=== PATIENT | female | born 1995 | race Caucasian/White ===

== ENCOUNTER → 2016-10-04 | Outpatient (CLI) | payer BC ==
[2016-10-07 01:33] LABS: CHLAMYDIA TRACH RNA*** NOT DETECTED (NOT DETECTED); GC (NEIS GONORRHOEAE)RNA** NOT DETECTED (NOT DETECTED)
== END | disposition home or self-care (01) ==
LOC: C.LABSPEC 17:57
PROVIDERS: ATTEND Obstetrics & Gynecology
DX: Z01.419 Encounter for gynecological examination (general) (routine) without abnormal findings (principal)

== ENCOUNTER → 2016-10-04 | Outpatient (CLI) | payer BC | END | disposition home or self-care (01) | LOC: C.PAPS 10:03 | PROVIDERS: ATTEND Obstetrics & Gynecology | DX: Z01.419 Encounter for gynecological examination (general) (routine) without abnormal findings (principal) ==

== ENCOUNTER 2020-01-14 10:58 | Inpatient (IN) ==
[2020-01-14] MEDS ORDERED: BETAMETH SOD PHOS/ACETATE IA 6 MG/ML IM STA (11:27)
[2020-01-14] MEDS ORDERED: LACTATED RINGER'S 1,000 ML IV PRN (11:35)
[2020-01-14] MEDS ORDERED: PENICILLIN G POTASSIUM 6 MU in DEXTROSE 5% 250 ML IV STA (11:35)
[2020-01-14] MEDS ORDERED: OXYTOCIN 30 UNITS/500 ML BAG IV PRN (11:35)
[2020-01-14] MEDS: LACTATED RINGER'S 1,000 ML IV PRN ×3 (11:36→23:12)
[2020-01-14 11:45] LABS: Basophils # (auto) 0.02 K/uL (0-0.2); Basophils % (auto) 0.1 %; Eosinophils # (auto) 0.04 K/uL (0-0.5); Eosinophils % (auto) 0.3 %; Hematocrit (blood only) 38.2 % (37-47); Hemoglobin 13.5 g/dL (12.0-16.0); Immature Granulocytes # (auto) 0.04 K/uL (0.00-0.02); Immature Granulocytes % (auto) 0.3 %; Lymphocytes # (auto) 1.52 K/uL (1.2-3.4); Lymphocytes % (auto) 11.1 %; Mean Corpuscular Hemoglobin 31.7 pg (25-34); Mean Corpuscular Hgb Conc 35.3 g/dL (32-36); Mean Corpuscular Volume 89.7 fL (80-100); Mean Platelet Volume 12.2 fL (7.4-10.4); Monocytes # (auto) 0.57 K/uL (0.11-0.59); Monocytes % (auto) 4.2 %; Neutrophils # (auto) 11.49 K/uL (1.4-6.5); Platelet Count 170 K/uL (130-400); RDW Standard Deviation 42.4 fL (36.4-46.3); Red Blood Count 4.26 M/uL (4.2-5.4); White Blood Count 13.68 K/uL (4.8-10.8)
--- NOTE | 2020-01-14 11:45 | History & Physical Report ---
Date of Service January 14, 2020 Assessment & Plan (1) with 34 completed weeks gestation: (2) Premature labor: fetus category two with variables but overall reassuring variability. Given the situation of the fhr monitoring and that she is in alon, I discussed the situation with the patient. Options would include transferring to tertiary care center or proceeding with delivery here. Given the appearance of the monitor and that she had some bleeding after my check, I am concerned about putting this patient on a transport at this time with concern for decompensation of status, she may be trying to abrupt. Discussed this with the patient and Dr. Burkett the peds. If she stays here, there is a possibility of the baby needing transferred for NICU care. We discussed the +/- of the options. I do not feel it is really safe to transport the patient at this time. Would plan on admitting the patient and letting mother nature take it's course. As GBS unknown, will give pcn. Dr. Burkett is aware of the plan and in agreement. Patient and SO are also in agreement with staying and willing to risk transfer of fetus. Would allow vaginal delivery as long as FHT tolerate labor. IF nrfht, would proceed with c/s. Patient is aware. History of Present Illness Chief Complaint: contractions Primary Care Provider: NO PCP Patient is a 24yowf wtih iup at 34 5/7 weeks by a first trimester ultrasound. She presents to the office today for increasing contractions. She was seen over the weekend in labor and delivery for contractions, was cl/l and had ffn which was negative. She was d/c home. Patient notes that she continued to contract intermittently over the last several days and times quite stong and close. They got stronger this am. Patient notes she has been peeing alot but denies lof. no vaginal bleeding noted. +fm. labs--A+/ab-/ri/rprnr/hepb-/hiv-/gtt x 2 nl/ gc/ct-/ panorama low risk/ declined cf/sma/gbs unknown. Allergies Allergy/AdvReac Type Severity Reaction Status Date / Time No Known Drug Allergies Allergy Verified 01/09/20 13:55 Home Medications Home Medications Medication Instructions Recorded Confirmed Type breast pump #1 ea 10/30/19 01/09/20 Rx docusate sodium [Colace] 100 mg PO DAILY 01/12/20 01/12/20 History vit-iron fum-folic ac 1 tab PO DAILY 01/12/20 01/12/20 History [ Vitamin] Patient History Medical History No pertinent past medical history Surgical History History of tooth extraction S/P eye surgery Family History Uncle Diabetes paternal uncle Social History Preferred Language: Polish Beliefs That Will Affect Care: None marital status: marital status details: Schuyler (26) [phone] Current Living Situation: Spouse Current Living Situation Comment: lives with spouse and 1 dog current occupational status: employed 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 Psychiatric: A+Ox3, euthymic affect Genitourinary: cx--3-4/90/-2, difficult to feel any membranes after checking patient noted she felt leaking/gush, and a little gush of blood noted from the vagina efm--145 with mod variability, small accels , variables with some contractions bsus--cephalic, very little amniotic fluid noted toco--q2-4min contractions with lots of irritability. Results & Data Vital Signs (Past 12 Hours) Vital Signs Temp Resp 01/14/20 11:08 36.8 C 20 Code Status & VTE Plan VTE Prophylaxis Plan VTE Prophylaxis will be ordered: No Coding Level of Care Code None Diagnoses with 34 completed weeks gestation Z3A.34 Premature labor O60.00
--- NOTE | 2020-01-14 14:14 | Obstetrical Progress Note ---
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 Contractions have spaced with ivf. It does not now appear that she is going to rapidly labor or that she is abrupting. Long conversation with the patient and FOB. Called and discussed the case [place] [facility] [place]ained the situation to her and concerned that now may be our only opportunity to get her transferred. The fht more reassuring with spacing of contractions. Is not making active cervical change at this point. they are ok to accept her in transfer at this time. Main benefit of transfer would be NICU and keeping mothe r and baby together. Patient understands that delivering here may necessitate baby needing transfer, likely for respiratory issues. Discussed helicopter vs. ambulance, and they think she is not urgent enough to require air transfer. I feel much better about putting her on an ambulance at this point. Would certainly check her before transfer. Discussed the other option of keeping her here under observation and getting second dose of steroids on board and seeing what happened. Dr. Johns did not think that there was an indication at this point for just breaking her bag of water and augmenting labor, despite my informal impression of oligo, do not see a pocket of fluid to measure that does not have cord (and only see one possible option). No idea when she will further labor, rom or become infected. After long discussion of pros/cons and uncertainty, they accept transfer. (2) with 34 completed weeks gestation: Subjective Patient notes ctx have spaced but still feeling them. No further bleeding. Was up to bathroom and no bleeding noted. +fm Physical Exam Constitutional: WD/WN, vitals as above Gastrointestinal (Abdomen): soft, gravid, nt Psychiatric: A+Ox3, euthymic affect Genitourinary: cx--/-2, bag felt, old blood noted on glove, no fresh blood toco--contractions have spaced some with ivf. Continues to have lots of irritability. A true contractions bout every 5-8 min efm--145 with mod variabiity, since contractions have spaced, there are fewer variables and not with all contractions, now just occasional. accels to 170s Results & Data Vital Signs (Past 12 Hours) Vital Signs Temp Resp 01/14/20 11:08 36.8 C 20 PG Care Time/CCT Total # of Minutes Spent Total Time Spent with Patient: Total time spent is greater than 50% in coordination of care (as documented) at patient's floor/unit and/or counseling patient: Coding Level of Care Code None Diagnoses Premature labor O60.00 with 34 completed weeks gestation Z3A.34
--- NOTE | 2020-01-14 14:21 | Labor Progress Brief Note ---
Date of Service January 14, 2020 Subjective Patient notes she feels the contractions are more painful and noted a little trickle Assessment & Plan (1) Premature labor: no change, still feel if she is not changing her cervix, the best option is transfer at this time. fetus reassuring. Physical Exam Constitutional: WD/WN, vitals as above Gastrointestinal (Abdomen): soft, nt, gravid Psychiatric: A+Ox3, euthymic affect Genitourinary: slight trickle of dark blood cx--unchanged toco--irritability , with occasional contractions efm--category one at this point. Results & Data Vital Signs (Past 12 Hours) Vital Signs Temp Resp 01/14/20 11:08 36.8 C 20 Coding Level of Care Code None Diagnoses Premature labor O60.00
--- NOTE | 2020-01-14 15:04 | Labor Progress Brief Note ---
Date of Service January 14, 2020 Subjective Patient notes she continues to be more uncomfortable. Notes contractions more frequent Assessment & Plan (1) Premature labor: At this point, I do not feel comfortable transferring the patient at this point given contractions have picked up a bit and she is perceiving them as getting stronger. AT this point, I just want to sit on her and monitor and see what she ends up doing. If she labors , will deliver by safest possible route based on ob indications. If does not labor, will monitor, get second dose of steroids and reevaluate. I discussed this patient with DR. Jones that will be taking over tomorrow. Explained the change in situation to the patient and they are very agreeable to staying. They are well aware of possibility of transfer of the baby postdelivery Physical Exam Constitutional: WD/WN, vitals as above Psychiatric: A+Ox3, euthymic affect Genitourinary: toco--contractions have now picked up a bit, more irritability, q4-8 efm--150s with mod variability, accels present. variables have picked up a bit again. Results & Data Vital Signs (Past 12 Hours) Vital Signs Temp Resp 01/14/20 11:08 36.8 C 20 Coding Level of Care Code None Diagnoses Premature labor O60.00
--- NOTE | 2020-01-14 16:06 | Ultrasound Report ---
US OB limited HISTORY: 24 years-old Female EMERSON evaluation of a third trimester . COMPARISON: Pelvic ultrasound 10/02/2019 TECHNIQUE: Multiple real-time sonographic images of the deep pelvic structures were obtained assessin g grayscale appearance and M-mode analysis transabdominal. FINDINGS: Limited study was obtained for evaluation of EMERSON. Femur length is 6.27 cm which correlates with estim ated gestational age of 32 weeks and 3 days. Estimated date of delivery calculated at 03/07/2020. Sing le living intrauterine gestation with heart rate of 148 bpm. Fetus is in cephalic positioning. Nonspecific heterogeneous appearance of the anterior placenta with probable placental calcifications. EMERSON measures 7.43 cm. IMPRESSION: 1. Single living intrauterine gestation. 2. EMERSON measures within the lower limits of normal at 7.4 cm. 3. Heterogeneous appearance of the placenta with suggestion of placental calcifications. ACT 112: Negative or not required by law. The above report was generated using voice recognition software. It may contain grammatical, syntax o r spelling errors. Electronically signed by: Bryan Gill M.D. 01/14/2020 4:05 PM
[2020-01-14] MEDS: PENICILLIN G POTASSIUM 3 MU in DEXTROSE 5% 100 ML IV PRN ×2 (16:12→20:10)
--- NOTE | 2020-01-14 16:43 | Labor Progress Brief Note ---
Date of Service January 14, 2020 Subjective Continues to be uncomfortable and noting back pain Assessment & Plan (1) Premature labor: Has not made any further significant change, but still having some dark bleeding. Plan expectant management at this point. Continue pcn for gbs unknown. fetus overall reassuring. Physical Exam Constitutional: WD/WN, vitals as above Psychiatric: A+Ox3, euthymic affect Genitourinary: cx--4/100/-2 toco--q4-8min, irritability efm--150s with mod variability, small accels, occasional variable formal ultrasound. EMERSON 7.43, calcified placenta Results & Data Vital Signs (Past 12 Hours) Vital Signs Temp Pulse Resp BP 01/14/20 15:55 37.2 C 85 20 119/70 01/14/20 11:08 36.8 C 20 Coding Level of Care Code None Diagnoses Premature labor O60.00
[2020-01-14] MEDS ORDERED: ePHEDrine sulfate 50 MG/ML AMP ONE (19:14)
--- NOTE | 2020-01-14 19:14 | Labor Progress Brief Note ---
Date of Service January 14, 2020 Subjective Patient feeling much more uncomfortable. Requesting epidural. She notes pressure much lower. Assessment & Plan (1) Premature labor: showing progression in labor now. Fetus overall reassuring category two. Will allow epidural at this point since she is demonstrating progression in labor. anticipate . Physical Exam Constitutional: WD/WN, vitals as above Psychiatric: A+Ox3, euthymic affect Genitourinary: cx--5+/100/-2, bulging bag toco--q2-5min efm--150s with mod variability, small variables, occasional Results & Data Vital Signs (Past 12 Hours) Vital Signs Temp Pulse Resp BP 01/14/20 19:07 90 105/58 L 01/14/20 15:55 37.2 C 85 20 119/70 01/14/20 11:08 36.8 C 20 Coding Level of Care Code None Diagnoses Premature labor O60.00
[2020-01-14] MEDS ORDERED: BUPIVACAINE 0.25% 30 ML VIAL ONE (19:15)
[2020-01-14] MEDS ORDERED: fentaNYL citrate 100 MCG/2 ML VIAL ONE (19:15)
[2020-01-14] MEDS ORDERED: fentaNYL 2MCG/ML ROPIV 1.25MG/ML 100 ML BAG EPI ONE (19:15)
[2020-01-14] MEDS ORDERED: fentaNYL 2MCG/ML ROPIV 1.25MG/ML 100 ML BAG EPI PRN (20:18)
[2020-01-14] MEDS ORDERED: NALOXONE HCL 0.4 MG/1 ML VIAL/CARP IV PRN (20:18)
[2020-01-14] MEDS ORDERED: NALOXONE HCL 1 MG in SODIUM CHLORIDE 0.9% 1000ML 1,000 ML IV PRN (20:18)
[2020-01-14] MEDS ORDERED: NALBUPHINE HCL INJ 10 MG/ML AMP IV PRN (20:18)
[2020-01-14] MEDS ORDERED: DiphenhydrAMINE HCL 50 MG/ML VIAL IV PRN (20:18)
[2020-01-14] MEDS ORDERED: ONDANSETRON INJ 2 MG/ML 2 ML VIAL IV PRN (20:18)
[2020-01-14] MEDS ORDERED: ePHEDrine sulfate 50 MG/ML AMP IV PRN (20:18)
--- NOTE | 2020-01-14 20:18 | Anesthesiology Consultation ---
Date of Service January 14, 2020 Assessment & Plan (1) Encounter for pre-operative examination: Chart Review Chart Review: Acceptable Risk for Surgery and Patient NOT seen in Pre Admission Testing Consults Requested none ASA ASA2 Proposed Anesthesia Anesthesia Type: Labor Epidural Risk / Benefits Reviewed With: PT / POA / Parent / Guardian, Accepts Plan and Informed Consent Obtained History Height/Weight Height: 5 ft 3 in Weight: 70.76 kg Allergies Allergy/AdvReac Type Severity Reaction Status Date / Time No Known Drug Allergies Allergy Verified 01/09/20 13:55 Medications Home Medications Medication Instructions Recorded Confirmed Last Taken breast pump #1 ea 10/30/19 01/09/20 Unknown docusate sodium [Colace] 100 mg PO DAILY 01/14/20 01/14/20 01/13/20 08:00 vit-iron fum-folic ac 1 tab PO DAILY 01/14/20 01/14/20 01/13/20 08:00 [ Vitamin] Active Medications Generic Name Dose Route Start Last Admin Trade Name Freq PRN Reason Stop Dose Admin Lactated Ringer's 1,000 mls @ 125 mls/hr 01/14/20 11:27 01/14/20 20:10 Lr IV 02/13/20 11:26 0 mls/hr .Q8H PRN Infusion L&D Protocol Protocol Penicillin G Potassium 3 mu/ 106 mls @ 100 mls/hr 01/14/20 11:35 01/14/20 20:10 Dextrose IV 01/24/20 11:34 100 mls/hr Q4H PRN Administration Give until delivery NPO Date Last Intake of Fluids: 01/14/20 Time Last Intake of Fluids: 18:00 Date Last Intake of Solids: 01/14/20 Time Last Intake of Solids: 09:00 Past Medical History Medical History No pertinent past medical history Exercise / Class Metabolic Activity II 4-5 Yardwork/Stairs/Walk up hill Past Family History Family History Uncle Diabetes paternal uncle Past Surgical History Surgical History History of tooth extraction S/P eye surgery Past Anesthesia History No Hx of Anesthesia Complications and No Family Hx of Anesthesia Complications History of PONV No Hx of PONV and No Hx of Motion Sickness Social History Smoking Status: Never smoker Hx Alcohol Use: No (social) Hx Substance Use: No substance use type: does not use Physical Exam Vital Signs Last Vital Signs Temp 36.9 C 01/14/20 19:07 Pulse 113 H 01/14/20 20:15 Resp 18 01/14/20 19:07 BP 97/55 L 01/14/20 20:15 Pulse Ox 97 01/14/20 20:11 ENMT Mouth: no dentition abnormality Thyromental Distance: > or= 3.5 Finger Breadths Mallampati Class: II Neck normal visual inspection Respiratory normal respiratory effort Auscultation: lungs clear to auscultation bilaterally Cardiovascular Rate/Rhythm: regular rate and regular rhythm Psychiatric Orientation: alert Testing Laboratory Results 01/14/20 11:34
--- NOTE | 2020-01-14 22:19 | Labor Progress Brief Note ---
Date of Service January 14, 2020 Subjective comfortable after epidural Assessment & Plan (1) Premature labor: continue current management. fetus overall category one , rarer variables now, but now with arom, will need to monitor closely. anticipate . Physical Exam Constitutional: WD/WN, vitals as above Psychiatric: A+Ox3, euthymic affect Genitourinary: 100/-2 arom--clear toco--q2-4min efm--150s with mod variability, small accels, occasional rare variable at this point Results & Data Vital Signs (Past 12 Hours) Vital Signs Temp Pulse Resp BP Pulse Ox 01/14/20 22:11 94 H 98 01/14/20 22:06 120 H 97 01/14/20 22:05 86 98/50 L 01/14/20 22:01 89 96 01/14/20 21:56 77 96 01/14/20 21:51 77 97 01/14/20 21:49 80 92/54 L 01/14/20 21:46 82 97 01/14/20 21:41 84 96 01/14/20 21:36 77 96 01/14/20 21:34 76 94/54 L 01/14/20 21:31 77 96 01/14/20 21:30 18 01/14/20 21:26 79 97 01/14/20 21:21 77 96 01/14/20 21:20 88 104/55 L 01/14/20 21:16 81 97 01/14/20 21:11 79 97 01/14/20 21:06 81 96 01/14/20 21:05 91 H 103/56 L 01/14/20 21:01 96 H 97 01/14/20 21:00 18 01/14/20 20:56 93 H 97 01/14/20 20:51 82 97 01/14/20 20:46 92 H 98 01/14/20 20:42 74 102/56 L 01/14/20 20:41 76 97 01/14/20 20:36 79 98 01/14/20 20:33 80 102/55 L 01/14/20 20:31 76 98 01/14/20 20:30 37.7 C H 18 01/14/20 20:26 109 H 98 01/14/20 20:21 81 101/55 L 97 01/14/20 20:19 86 101/55 L 01/14/20 20:17 85 103/52 L 01/14/20 20:16 91 H 97 01/14/20 20:15 113 H 97/55 L 01/14/20 20:13 86 96/53 L 01/14/20 20:11 88 101/51 L 97 01/14/20 20:07 76 107/55 L 01/14/20 20:06 79 97 01/14/20 20:05 89 112/55 L 01/14/20 20:01 81 98 01/14/20 19:56 94 H 98 01/14/20 19:54 86 115/55 L 01/14/20 19:51 89 98 01/14/20 19:46 101 H 98 01/14/20 19:41 95 H 99 01/14/20 19:36 81 100 01/14/20 19:31 85 99 01/14/20 19:26 84 99 01/14/20 19:07 36.9 C 90 18 105/58 L 01/14/20 15:55 37.2 C 85 20 119/70 01/14/20 11:08 36.8 C 20 Coding Level of Care Code None Diagnoses Premature labor O60.00
[2020-01-15] MEDS: PENICILLIN G POTASSIUM 3 MU in DEXTROSE 5% 100 ML IV PRN ×2 (00:12→04:04)
--- NOTE | 2020-01-15 00:23 | Labor Progress Brief Note ---
Date of Service January 15, 2020 Subjective comfortable Assessment & Plan (1) Premature labor: Continue current expectant management. Fetus category two but overall reassuring. Anticipate . Physical Exam Constitutional: WD/WN, vitals as above Psychiatric: A+Ox3, euthymic affect Genitourinary: cx--7-8/100/-1-0 toco--q2-3min efm--150s with mod variability, small accels, rare variable Results & Data Vital Signs (Past 12 Hours) Vital Signs Temp Pulse Resp BP Pulse Ox 01/15/20 00:16 93 H 97 01/15/20 00:12 37.0 C 16 01/15/20 00:11 84 97 01/15/20 00:06 87 96 01/15/20 00:04 100 H 107/57 L 01/15/20 00:01 88 96 01/14/20 23:56 85 96 01/14/20 23:51 86 96 01/14/20 23:49 88 106/58 L 01/14/20 23:46 116 H 97 01/14/20 23:41 92 H 96 01/14/20 23:36 83 96 01/14/20 23:35 115 H 103/56 L 01/14/20 23:31 100 H 97 01/14/20 23:30 18 01/14/20 23:26 107 H 97 01/14/20 23:21 80 96 01/14/20 23:20 88 115/56 L 01/14/20 23:16 88 96 01/14/20 23:11 99 H 97 01/14/20 23:06 110 H 97 01/14/20 23:05 100 H 112/59 L 01/14/20 23:01 88 97 01/14/20 23:00 18 01/14/20 22:56 105 H 96 01/14/20 22:51 91 H 97 01/14/20 22:50 126 H 118/57 L 01/14/20 22:46 81 96 01/14/20 22:41 89 96 01/14/20 22:36 75 96 01/14/20 22:34 91 H 103/57 L 01/14/20 22:31 73 96 01/14/20 22:30 18 01/14/20 22:26 72 96 01/14/20 22:21 83 96 01/14/20 22:19 97 H 95/56 L 01/14/20 22:16 77 97 01/14/20 22:15 37.1 C 01/14/20 22:11 94 H 98 01/14/20 22:06 120 H 97 01/14/20 22:05 86 98/50 L 01/14/20 22:01 89 96 01/14/20 22:00 18 01/14/20 21:56 77 96 01/14/20 21:51 77 97 01/14/20 21:49 80 92/54 L 01/14/20 21:46 82 97 01/14/20 21:41 84 96 01/14/20 21:36 77 96 01/14/20 21:34 76 94/54 L 01/14/20 21:31 77 96 01/14/20 21:30 18 01/14/20 21:26 79 97 01/14/20 21:21 77 96 01/14/20 21:20 88 104/55 L 01/14/20 21:16 81 97 01/14/20 21:11 79 97 01/14/20 21:06 81 96 01/14/20 21:05 91 H 103/56 L 01/14/20 21:01 96 H 97 01/14/20 21:00 18 01/14/20 20:56 93 H 97 01/14/20 20:51 82 97 01/14/20 20:46 92 H 98 01/14/20 20:42 74 102/56 L 01/14/20 20:41 76 97 01/14/20 20:36 79 98 01/14/20 20:33 80 102/55 L 01/14/20 20:31 76 98 01/14/20 20:30 37.7 C H 18 01/14/20 20:26 109 H 98 01/14/20 20:21 81 101/55 L 97 01/14/20 20:19 86 101/55 L 01/14/20 20:17 85 103/52 L 01/14/20 20:16 91 H 97 01/14/20 20:15 113 H 97/55 L 01/14/20 20:13 86 96/53 L 01/14/20 20:11 88 101/51 L 97 01/14/20 20:07 76 107/55 L 01/14/20 20:06 79 97 01/14/20 20:05 89 112/55 L 01/14/20 20:01 81 98 01/14/20 19:56 94 H 98 01/14/20 19:54 86 115/55 L 01/14/20 19:51 89 98 01/14/20 19:46 101 H 98 01/14/20 19:41 95 H 99 01/14/20 19:36 81 100 01/14/20 19:31 85 99 01/14/20 19:26 84 99 01/14/20 19:07 36.9 C 90 18 105/58 L 01/14/20 15:55 37.2 C 85 20 119/70 Coding Level of Care Code None Diagnoses Premature labor O60.00
--- NOTE | 2020-01-15 03:19 | Labor Progress Brief Note ---
Date of Service January 15, 2020 Subjective comfortable Assessment & Plan (1) Premature labor: Begin second stage. Peds here. anticipate . Physical Exam Constitutional: WD/WN, vitals as above Psychiatric: A+Ox3, euthymic affect Genitourinary: c/c/+2 toco--q2-4min efm--140s wtih mod variability, accels to 160s, occasional variable Results & Data Vital Signs (Past 12 Hours) Vital Signs Temp Pulse Resp BP Pulse Ox 01/15/20 03:16 99 H 96 01/15/20 03:11 93 H 97 01/15/20 03:06 90 96 01/15/20 03:05 87 104/55 L 01/15/20 03:01 96 H 96 01/15/20 03:00 18 01/15/20 02:56 88 96 01/15/20 02:51 90 97 01/15/20 02:49 83 104/50 L 01/15/20 02:46 85 97 01/15/20 02:41 83 97 01/15/20 02:36 102 H 98 01/15/20 02:35 93 H 129/63 01/15/20 02:31 87 97 01/15/20 02:30 18 01/15/20 02:26 91 H 97 01/15/20 02:21 94 H 97 01/15/20 02:20 96 H 122/59 L 01/15/20 02:16 88 96 01/15/20 02:11 85 97 01/15/20 02:06 103 H 98 01/15/20 02:04 96 H 115/58 L 01/15/20 02:01 91 H 97 01/15/20 02:00 16 01/15/20 01:56 86 97 01/15/20 01:51 106 H 98 01/15/20 01:49 100 H 116/63 01/15/20 01:46 86 97 01/15/20 01:41 85 97 01/15/20 01:36 84 97 01/15/20 01:34 113 H 106/60 01/15/20 01:31 97 H 98 01/15/20 01:30 18 01/15/20 01:26 98 H 97 01/15/20 01:21 117 H 97 01/15/20 01:20 115 H 117/59 L 01/15/20 01:16 83 97 01/15/20 01:11 104 H 96 01/15/20 01:06 99 H 97 01/15/20 01:05 96 H 110/59 L 01/15/20 01:01 109 H 97 01/15/20 01:00 16 01/15/20 00:56 90 97 01/15/20 00:51 111 H 97 01/15/20 00:49 89 110/60 01/15/20 00:46 88 97 01/15/20 00:41 108 H 97 01/15/20 00:36 105 H 97 01/15/20 00:34 100 H 112/63 01/15/20 00:31 91 H 97 01/15/20 00:30 18 01/15/20 00:26 124 H 97 01/15/20 00:21 89 109/62 98 01/15/20 00:16 93 H 97 01/15/20 00:12 37.0 C 16 01/15/20 00:11 84 97 01/15/20 00:06 87 96 01/15/20 00:04 100 H 107/57 L 01/15/20 00:01 88 96 01/14/20 23:56 85 96 01/14/20 23:51 86 96 01/14/20 23:49 88 106/58 L 01/14/20 23:46 116 H 97 01/14/20 23:41 92 H 96 01/14/20 23:36 83 96 01/14/20 23:35 115 H 103/56 L 01/14/20 23:31 100 H 97 01/14/20 23:30 18 01/14/20 23:26 107 H 97 01/14/20 23:21 80 96 01/14/20 23:20 88 115/56 L 01/14/20 23:16 88 96 01/14/20 23:11 99 H 97 01/14/20 23:06 110 H 97 01/14/20 23:05 100 H 112/59 L 01/14/20 23:01 88 97 01/14/20 23:00 18 01/14/20 22:56 105 H 96 01/14/20 22:51 91 H 97 01/14/20 22:50 126 H 118/57 L 01/14/20 22:46 81 96 01/14/20 22:41 89 96 01/14/20 22:36 75 96 01/14/20 22:34 91 H 103/57 L 01/14/20 22:31 73 96 01/14/20 22:30 18 01/14/20 22:26 72 96 01/14/20 22:21 83 96 01/14/20 22:19 97 H 95/56 L 01/14/20 22:16 77 97 01/14/20 22:15 37.1 C 01/14/20 22:11 94 H 98 01/14/20 22:06 120 H 97 01/14/20 22:05 86 98/50 L 01/14/20 22:01 89 96 01/14/20 22:00 18 01/14/20 21:56 77 96 01/14/20 21:51 77 97 01/14/20 21:49 80 92/54 L 01/14/20 21:46 82 97 01/14/20 21:41 84 96 01/14/20 21:36 77 96 01/14/20 21:34 76 94/54 L 01/14/20 21:31 77 96 01/14/20 21:30 18 01/14/20 21:26 79 97 01/14/20 21:21 77 96 01/14/20 21:20 88 104/55 L 01/14/20 21:16 81 97 01/14/20 21:11 79 97 01/14/20 21:06 81 96 01/14/20 21:05 91 H 103/56 L 01/14/20 21:01 96 H 97 01/14/20 21:00 18 01/14/20 20:56 93 H 97 01/14/20 20:51 82 97 01/14/20 20:46 92 H 98 01/14/20 20:42 74 102/56 L 01/14/20 20:41 76 97 01/14/20 20:36 79 98 01/14/20 20:33 80 102/55 L 01/14/20 20:31 76 98 01/14/20 20:30 37.7 C H 18 01/14/20 20:26 109 H 98 01/14/20 20:21 81 101/55 L 97 01/14/20 20:19 86 101/55 L 01/14/20 20:17 85 103/52 L 01/14/20 20:16 91 H 97 01/14/20 20:15 113 H 97/55 L 01/14/20 20:13 86 96/53 L 01/14/20 20:11 88 101/51 L 97 01/14/20 20:07 76 107/55 L 01/14/20 20:06 79 97 01/14/20 20:05 89 112/55 L 01/14/20 20:01 81 98 01/14/20 19:56 94 H 98 01/14/20 19:54 86 115/55 L 01/14/20 19:51 89 98 01/14/20 19:46 101 H 98 01/14/20 19:41 95 H 99 01/14/20 19:36 81 100 01/14/20 19:31 85 99 01/14/20 19:26 84 99 01/14/20 19:07 36.9 C 90 18 105/58 L 01/14/20 15:55 37.2 C 85 20 119/70 Coding Level of Care Code None Diagnoses Premature labor O60.00
[2020-01-15] MEDS: LACTATED RINGER'S 1,000 ML IV PRN (03:46)
[2020-01-15] MEDS ORDERED: METHYLERGONOVINE MALEATE 0.2 MG/ML AMP ONE (04:35)
[2020-01-15] MEDS ORDERED: ACETAMINOPHEN 325 MG TAB PO PRN (04:43)
[2020-01-15] MEDS ORDERED: OXYCODONE/ACETAMINOPHEN 5mg/325mg TAB PO PRN (04:43)
--- NOTE | 2020-01-15 04:48 | Delivery Summary ---
Vaginal Delivery Summary Date of Service January 15, 2020 Pre-operative Diagnosis: at 34 6/7 weeks alon Post-operative Diagnosis: same Procedure: epidural arom second degree laceration with repair EBL: 400cc Anesthesia: epidural Procedure: The patient pushed for an hour to deliver a viable male in DOP position. The rest of the infant was then delivered without difficulty through a body cord. The baby was vigorous. The nose and mouth were bulb suctioned and the infant was placed in the maternal abdomen for drying and attention. Cord was clamped and cut at one minute of life. Cord blood and gases obtained. Placenta was manually extracted, ratty in appearance with a three vessel cord. Uterus explored after delivery of placenta and no retained products noted. Cervix/sulci/rectum were intact. A second degree perineal laceration was repaired in the normal standard fashion. Hemostasis obtained with dilute pitocin and fundal massage and IM methergine. Apgars were 7/9. Mother and baby doing well at the end of the delivery.
[2020-01-15 04:57] LABS: Base Excess Cord Arterial Bld -7.7 mEq/L (-9-1.8); CO2 Cord Arterial Blood 63 mmHg (39.1-73.5); HCO3 Cord Arterial Blood 22 mmol/L (19.7-28.5); PO2 Cord Arterial Blood 21 mmHg (4.1-31.7); pH Cord Arterial Blood 7.17 (7.1-7.38)
[2020-01-15 05:02] LABS: Base Excess Cord Venous Blood -6.7 mEq/L (-7.7-1.9); Cord Venous Blood HCO3 21 mmol/L (18.4-26.8); Cord Venous Blood PCO2 47 mmHg (30.4-57.2); Cord Venous Blood PO2 22 mmHg (14.1-43.3); Cord Venous Blood pH 7.26 (7.20-7.44)
[2020-01-15 05:05] LABS: O2 Saturation Cord Venous Bld < 68.0 % (<68); Oxygen Sat Cord Arterial Blood < 60.0 % (<60)
[2020-01-15] MEDS ORDERED: METHYLERGONOVINE MALEATE 0.2 MG/ML AMP IM ONE (05:09)
[2020-01-15] MEDS ORDERED: HYDROCORTISONE ACETATE 25 MG SUPP PR PRN (05:09)
[2020-01-15] MEDS ORDERED: SUPERCREAM 0.870% 15 GM JAR EXT PRN (05:09)
[2020-01-15] MEDS ORDERED: DIPHTHERIA/TETANUS/PERTUSSIS 0.5 ML SYR/VIAL IM ONE (05:09)
[2020-01-15] MEDS ORDERED: bisacodyL 10 MG SUPP PR PRN (05:09)
[2020-01-15] MEDS ORDERED: OXYTOCIN 30 UNITS/500 ML BAG IV PRN (05:09)
[2020-01-15] MEDS ORDERED: BENZOCAINE 20% AER SPR 82.5 GM CAN EXT PRN (05:09)
[2020-01-15] MEDS ORDERED: IBUPROFEN 600 MG TAB PO ONE (05:13)
[2020-01-15] MEDS ORDERED: CEFAZOLIN 3000MG/72.5 ML BAG IV SCH (05:15)
[2020-01-15] MEDS ORDERED: CEFAZOLIN 2000MG 2,000 MG/15 ML SYR IV ONE (05:30)
[2020-01-15] MEDS: PRENATAL VITAMIN 1 TAB PO SCH (08:53)
[2020-01-15] MEDS: DOCUSATE SODIUM 100 MG CAP PO SCH ×2 (08:53→20:55)
[2020-01-15] MEDS: IBUPROFEN 600 MG TAB PO PRN ×2 (09:58→15:43)
--- NOTE | 2020-01-15 10:02 | Anesthesia Procedure Note ---
Date of Service January 15, 2020 Anesthesia Post Epidural Note Vital Signs Vital Signs: Temp Pulse Resp BP Pulse Ox 36.8 C 105 H 16 114/72 98 01/15/20 07:30 01/15/20 07:30 01/15/20 07:30 01/15/20 07:30 01/15/20 07:30 Pain Intensity Abdomen: Pain Intensity: 2 Perineal: Pain Intensity: 1 Notes Mental Status: alert / awake / arousable and participated in evaluation Nausea / Vomiting: adequately controlled Pain: adequately controlled Airway Patency, RR, SpO2: stable & adequate BP & HR: stable & adequate Hydration State: stable & adequate Neuraxial Anesthesia: was administered and sensory block resolved Anesthetic Complications: no major complications apparent and Pt Satisfied with anesthetic care Epidural: Removed without complications and With tip intact
[2020-01-16] MEDS: IBUPROFEN 600 MG TAB PO PRN ×3 (06:16→17:09)
[2020-01-16 06:54] LABS: Hematocrit (blood only) 32.2 % (37-47); Hemoglobin 10.8 g/dL (12.0-16.0)
--- NOTE | 2020-01-16 07:55 | Obstetrical Progress Note ---
Date of Service January 16, 2020 Assessment & Plan (1) delivery: doing well . stable. routine care. rhpos, rubella immune. Day #:: 1 Subjective Ambulation: ambulating normally Voiding: no voiding problems Diet Tolerance:: regular diet Lochia:: Small Feeding Type:: breast feeding doing well. denies complaints. bottom a little sore. baby Physical Exam Constitutional WD/WN, vitals as above Respiratory normal respiratory effort, lungs clear to auscultation Cardiovascular Rate/Rhythm: regular rate and regular rhythm Gastrointestinal (Abdomen) Inspection/Auscultation: abdomen normal to inspection Percussion/Palpation: abdomen soft Fundus firm 2cm down Musculoskeletal nt calves no edema Neurologic grossly normal Psychiatric A+Ox3, euthymic affect Results & Data Vital Signs (Past 12 Hours) Vital Signs Temp Pulse Resp BP Pulse Ox 01/15/20 23:30 97.9 F 72 16 102/61 96
[2020-01-16] MEDS: DOCUSATE SODIUM 100 MG CAP PO SCH ×2 (08:58→20:28)
[2020-01-16] MEDS: PRENATAL VITAMIN 1 TAB PO SCH (08:58)
[2020-01-16] MEDS ORDERED: bisacodyL 5 MG TABEC PO SCH (20:00)
[2020-01-17] MEDS: IBUPROFEN 600 MG TAB PO PRN ×3 (05:35→20:32)
--- NOTE | 2020-01-17 06:55 | Obstetrical Progress Note ---
Date of Service January 17, 2020 Assessment & Plan (1) delivery: PPD#2 vaginal delivery, recovering well, D/C instructions reviewed today. Subjective Ambulation: ambulating normally Voiding: no voiding problems Passing Gas:: Yes Diet Tolerance:: regular diet Lochia:: Small Feeding Type:: breast feeding Physical Exam Constitutional WD/WN, vitals as above Eyes PERRL, conjunctivae normal, anicteric sclerae Neck normal visual inspection Respiratory normal respiratory effort and able to speak in complete sentences; no respiratory distress and no labored breathing Cardiovascular Rate/Rhythm: regular rate and regular rhythm Extremities: no edema Chest (Breasts) Chest: normal inspection of chest Gastrointestinal (Abdomen) Inspection/Auscultation: abdomen normal to inspection Soft, postgravid Psychiatric A+Ox3, euthymic affect Genitourinary OB Exam Abdomen: + fundal height Fundus: + firm and + relation to umbilicus (fundus just below umbilicus); not tender Results & Data Vital Signs (Past 12 Hours) Vital Signs Temp Pulse Resp BP 01/16/20 23:20 97.9 F 79 18 104/68 01/16/20 19:41 98.2 F 89 18 110/68
[2020-01-17] MEDS: DOCUSATE SODIUM 100 MG CAP PO SCH ×2 (08:10→20:32)
[2020-01-17] MEDS: PRENATAL VITAMIN 1 TAB PO SCH (08:10)
[2020-01-17 08:12] VITALS: TEMP 98.1; O2SAT 98
[2020-01-17 17:20] VITALS: BP 108/70; PULSE 80
== END 2020-01-17 20:35 | disposition home or self-care (01) | DRG 807 ==
LOC: 4S1 10:58 → OPB 10:58 → 4S1 11:35 → 4S2 01-15 06:50

== ENCOUNTER 2021-12-07 14:01 | Inpatient (IN) ==
--- NOTE | 2021-12-07 14:26 | Emergency Department Note ---
Impression & Plan Depression with suicidal ideation, Tobacco use ED Provider Note NAME: RUFINO PAN AGE: 26 SEX: F : 1995 ARRIVES VIA: Walk-In INFORMANT: Patient, ED PROVIDER(S): Jose Mays MD Chief Complaint: Suicidal thoughts HPI: Patient presents due to concern for suicidal thoughts that have been ongoing for the last 7 to 10 days. Patient states that she ran out of her medication approximately month ago but did not refill her medications. The patient is on 10 mcg of Celexa daily. Patient is working and states that her job is fine. Patient states that her home life is okay and that she feels safe at home. The patient has had SI with thoughts of using a gun and had thought of shooting herself in the past. The patient does have access to guns which are her 's. Patient denies any HI or AVH. Patient states her sleep and appetite been poor and that she is not eating or sleeping very well. Patient does admit to drinking alcohol and smokes cigarettes but denies any drug use. ROS: See HPI for pertinent positives and negatives. A total of 10 systems were reviewed and otherwise negative. Past medical history: See below Surgical history: See below Social history: See below Physical Exam: GENERAL: NAD, non-toxic. EYE EXAM: Normal conjunctiva. PERRL, no anisocoria and EOM's grossly intact w/o pain. OROPHARYNX: Moist mucus membranes. Grossly normal dentition. NECK: Supple, no nuchal rigidity, no adenopathy, non-tender. No signs of meningismus. LUNGS: Clear to auscultation. Normal chest wall mechanics. HEART: NSR, no MRG. ABDOMEN: Abdomen soft, non-tender, normo-active bowel sounds, no masses, no rebound or guarding. BACK: No CVA TTP. SKIN: No rashes and no bruising. UPPER EXTREMITIES: Upper extremities are grossly normal. LOWER EXTREMITIES: Grossly normal, no edema. NEURO EXAM: A&O x3, cranial nerves II-XII grossly intact, normal speech, moves all 4 extremities on command w/o issue. Psych: Positive SI, flat affect, negative HI or AVH. Differential diagnoses: Mood disorder, infection, hypoglycemia, electrolyte abnormalities, cardiac sources, intracerebral event, toxicologic, trauma, neurologic, as well as other pathologies. Course: Patient was seen and evaluated the bedside. Full history physical exam was performed. MDM: Patient was seen due to concern for SI with plan to shoot herself. The patient does have access to guns. Given this concern I did recommend inpatient management and the psych manager of case management saw evaluated the patient and agreed. The liason saw the patient and the patient was admitted to 3 S. Past Med/Surg History Medical History TORIN (generalized anxiety disorder) MDD (major depressive disorder) Surgical History History of tooth extraction S/P eye surgery Family History Uncle Diabetes paternal uncle Grandfather (Paternal) Prostate cancer Denies family history of Ovarian cancer Myocardial infarction Breast cancer Colorectal cancer Social History Smoking Status: Unknown if ever smoked Second Hand Exposure: No; Hx Alcohol Use: No (social) Hx Substance Use: No Preferred Language: Sinhala Communication Ability: Effective Chief Clinical Dietitian Required: No Beliefs That Will Affect Care: None marital status: marital status details: Schuyler (26) [phone] Current Living Situation: Spouse Current Living Situation Comment: lives with spouse and 1 dog current occupational status: employed 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 @ [employer] Feels Safe at Home: Yes Assistive Devices: None Allergies Allergies Allergy/AdvReac Type Severity Reaction Status Date / Time No Known Drug Allergies Allergy NKDA Verified 12/07/21 16:25 Home Meds Home Medications Medication Instructions Recorded Confirmed multivitamin 1 tab PO DAILY 12/07/21 12/07/21 Previous Rx's Medication Instructions Recorded escitalopram oxalate 10 mg tablet 10 mg PO DAILY #90 tab 12/06/21 (Lexapro) Results & Data (ED) Vital Signs Vital Signs - 24 hr 12/07/21 14:06 12/07/21 14:13 Temperature 36.9 C Temperature Source Temporal Artery Scan Pulse Rate 101 H Pulse Rate [Right Finger] 91 H Pulse Rhythm Regular Respiratory Rate 16 18 Respiratory Effort / Characteristics Non-Labored Spontaneous Respiratory Depth Normal Respiratory Pattern Regular Blood Pressure 120/72 Blood Pressure [Left Arm] 121/67 Blood Pressure Mean 88 Blood Pressure Mean [Left Arm] 85 Pulse Oximetry 100 99 Oxygen Delivery Method Room Air Room Air Sepsis Recent Fever Within 48 Hours No Sepsis New/Unexplained Change in Mental Status No Sepsis Action Taken by Nursing No Action Required Home Medications Current Medication List: was personally reviewed by me Laboratory Data Attestation: I reviewed the patient's lab results. Result diagrams: 12/07/21 15:02 12/07/21 15:02 Lab Results 12/07/21 12/07/21 12/07/21 Range/Units 14:41 14:41 14:41 WBC (4.8-10.8) K/uL RBC (4.2-5.4) M/uL Hgb (12.0-16.0) g/dL Hct (37-47) % MCV (80-100) fL MCH (25-34) pg MCHC (32-36) g/dL RDW Std Deviation (36.4-46.3) fL RDW Coeff of [place] (11.5-14.5) % Plt Count (130-400) K/uL MPV (7.4-10.4) fL Immature Gran % (Auto) % Neut % (Auto) % Lymph % (Auto) % [place] % (Auto) % Eos % (Auto) % Baso % (Auto) % Neut # (Auto) (1.4-6.5) K/uL Lymph # (Auto) (1.2-3.4) K/uL [place] # (Auto) (0.11-0.59) K/uL Eos # (Auto) (0-0.5) K/uL Baso # (Auto) (0-0.2) K/uL Immature Gran # (Auto) (0.00-0.02) K/uL Sodium (136-145) mmol/L Potassium (3.5-5.1) mmol/L Chloride (98-107) mmol/L Carbon Dioxide (21-32) mmol/L Anion Gap (3-11) BUN (6-23) mg/dl Creatinine (0.6-1.2) mg/dl Est Cr Clr Drug Dosing ml/min Est GFR ( Amer) ml/min Est GFR (Non-Af Amer) ml/min BUN/Creatinine Ratio (10-20) Glucose (70-99(Fasting)) mg/dl Calcium (8.5-10.1) mg/dl Total Bilirubin (0.2-1.0) mg/dl AST (13-39) U/L ALT (7-52) U/L Alkaline Phosphatase (34-104) U/L Total Protein (6.0-8.3) gm/dl Albumin (3.4-5.0) gm/dl Globulin (2.5-4.0) gm/dl Albumin/Globulin Ratio (0.9-2) TSH (0.300-4.500) uIu/ml Urine Color Yellow Urine Appearance Clear (Clear) Urine pH 7.5 (4.5-7.5) Ur Specific [place] 1.012 (1.000-1.030) Urine Protein Negative (Negative) Urine Glucose (UA) Negative (Negative) Urine Ketones 1+ H (Negative) Urine Blood Negative (Negative) Urine Nitrite Negative (Negative) Urine Bilirubin Negative (Negative) Urine Urobilinogen Negative (Negative) Ur Leukocyte Esterase Negative (Negative) Urine Test Negative (Negative) Salicylates (3.0-30) mg/dl Urine Opiates Screen Neg (Neg) Ur Methadone, Qual Neg (Neg) Acetaminophen (10-30) ug/ml Urine Barbiturates Neg (Neg) Ur Phencyclidine (PCP) Neg (Neg) U Amphetamin/Meth Scrn Neg (Neg) MDMA (Ecstasy) Screen Neg (Neg) U Benzodiazepines Scrn Neg (Neg) Ur Cocaine Metabolite Neg (Neg) U Marijuana (THC) Screen Neg (Neg) Ethyl Alcohol mg/dL (<10.0) mg/dl SARS-CoV-2, RNA, NAAT (NEGATIVE) 12/07/21 12/07/21 12/07/21 Range/Units 15:02 15:02 15:02 WBC 8.86 (4.8-10.8) K/uL RBC 4.96 (4.2-5.4) M/uL Hgb 14.5 (12.0-16.0) g/dL Hct 41.6 (37-47) % MCV 83.9 (80-100) fL MCH 29.2 (25-34) pg MCHC 34.9 (32-36) g/dL RDW Std Deviation 37.5 (36.4-46.3) fL RDW Coeff of [place] 12.5 (11.5-14.5) % Plt Count 201 (130-400) K/uL MPV 11.6 H (7.4-10.4) fL Immature Gran % (Auto) 0.1 % Neut % (Auto) 79.4 % Lymph % (Auto) 15.8 % [place] % (Auto) 4.3 % Eos % (Auto) 0.3 % Baso % (Auto) 0.1 % Neut # (Auto) 7.03 H (1.4-6.5) K/uL Lymph # (Auto) 1.40 (1.2-3.4) K/uL [place] # (Auto) 0.38 (0.11-0.59) K/uL Eos # (Auto) 0.03 (0-0.5) K/uL Baso # (Auto) 0.01 (0-0.2) K/uL Immature Gran # (Auto) 0.01 (0.00-0.02) K/uL Sodium 138 (136-145) mmol/L Potassium 3.6 (3.5-5.1) mmol/L Chloride 106 (98-107) mmol/L Carbon Dioxide 26 (21-32) mmol/L Anion Gap 6 (3-11) BUN 8 (6-23) mg/dl Creatinine 0.69 (0.6-1.2) mg/dl Est Cr Clr Drug Dosing 112.3 ml/min Est GFR ( Amer) 139.2 ml/min Est GFR (Non-Af Amer) 120.1 ml/min BUN/Creatinine Ratio 11.6 (10-20) Glucose 87 (70-99(Fasting)) mg/dl Calcium 9.5 (8.5-10.1) mg/dl Total Bilirubin 0.6 (0.2-1.0) mg/dl AST 14 (13-39) U/L ALT 13 (7-52) U/L Alkaline Phosphatase 49 (34-104) U/L Total Protein 7.7 (6.0-8.3) gm/dl Albumin 4.7 (3.4-5.0) gm/dl Globulin 3.0 (2.5-4.0) gm/dl Albumin/Globulin Ratio 1.6 (0.9-2) TSH 1.020 (0.300-4.500) uIu/ml Urine Color Urine Appearance (Clear) Urine pH (4.5-7.5) Ur Specific [place] (1.000-1.030) Urine Protein (Negative) Urine Glucose (UA) (Negative) Urine Ketones (Negative) Urine Blood (Negative) Urine Nitrite (Negative) Urine Bilirubin (Negative) Urine Urobilinogen (Negative) Ur Leukocyte Esterase (Negative) Urine Test (Negative) Salicylates (3.0-30) mg/dl Urine Opiates Screen (Neg) Ur Methadone, Qual (Neg) Acetaminophen (10-30) ug/ml Urine Barbiturates (Neg) Ur Phencyclidine (PCP) (Neg) U Amphetamin/Meth Scrn (Neg) MDMA (Ecstasy) Screen (Neg) U Benzodiazepines Scrn (Neg) Ur Cocaine Metabolite (Neg) U Marijuana (THC) Screen (Neg) Ethyl Alcohol mg/dL (<10.0) mg/dl SARS-CoV-2, RNA, NAAT (NEGATIVE) 12/07/21 12/07/21 12/07/21 Range/Units 15:02 15:02 16:17 WBC (4.8-10.8) K/uL RBC (4.2-5.4) M/uL Hgb (12.0-16.0) g/dL Hct (37-47) % MCV (80-100) fL MCH (25-34) pg MCHC (32-36) g/dL RDW Std Deviation (36.4-46.3) fL RDW Coeff of [place] (11.5-14.5) % Plt Count (130-400) K/uL MPV (7.4-10.4) fL Immature Gran % (Auto) % Neut % (Auto) % Lymph % (Auto) % [place] % (Auto) % Eos % (Auto) % Baso % (Auto) % Neut # (Auto) (1.4-6.5) K/uL Lymph # (Auto) (1.2-3.4) K/uL [place] # (Auto) (0.11-0.59) K/uL Eos # (Auto) (0-0.5) K/uL Baso # (Auto) (0-0.2) K/uL Immature Gran # (Auto) (0.00-0.02) K/uL Sodium (136-145) mmol/L Potassium (3.5-5.1) mmol/L Chloride (98-107) mmol/L Carbon Dioxide (21-32) mmol/L Anion Gap (3-11) BUN (6-23) mg/dl Creatinine (0.6-1.2) mg/dl Est Cr Clr Drug Dosing ml/min Est GFR ( Amer) ml/min Est GFR (Non-Af Amer) ml/min BUN/Creatinine Ratio (10-20) Glucose (70-99(Fasting)) mg/dl Calcium (8.5-10.1) mg/dl Total Bilirubin (0.2-1.0) mg/dl AST (13-39) U/L ALT (7-52) U/L Alkaline Phosphatase (34-104) U/L Total Protein (6.0-8.3) gm/dl Albumin (3.4-5.0) gm/dl Globulin (2.5-4.0) gm/dl Albumin/Globulin Ratio (0.9-2) TSH (0.300-4.500) uIu/ml Urine Color Urine Appearance (Clear) Urine pH (4.5-7.5) Ur Specific [place] (1.000-1.030) Urine Protein (Negative) Urine Glucose (UA) (Negative) Urine Ketones (Negative) Urine Blood (Negative) Urine Nitrite (Negative) Urine Bilirubin (Negative) Urine Urobilinogen (Negative) Ur Leukocyte Esterase (Negative) Urine Test (Negative) Salicylates < 3.0 L (3.0-30) mg/dl Urine Opiates Screen (Neg) Ur Methadone, Qual (Neg) Acetaminophen < 3 L (10-30) ug/ml Urine Barbiturates (Neg) Ur Phencyclidine (PCP) (Neg) U Amphetamin/Meth Scrn (Neg) MDMA (Ecstasy) Screen (Neg) U Benzodiazepines Scrn (Neg) Ur Cocaine Metabolite (Neg) U Marijuana (THC) Screen (Neg) Ethyl Alcohol mg/dL < 10.0 (<10.0) mg/dl SARS-CoV-2, RNA, NAAT NEGATIVE (NEGATIVE) Discharge Plan Visit Data Chief Complaint: Mental Health Evaluation Stated Complaint: [facility] ED Provider: Jose Mays Discharge Problem: Depression with suicidal ideation, Tobacco use Patient Disposition: Admitted As Inpatient
[2021-12-07 14:56] LABS: Appearance Urine Clear (Clear); Bilirubin Urine Negative (Negative); Blood Urine Negative (Negative); Color Urine Yellow; Glucose Urine UA Negative (Negative); Ketones Urine 1+ (Negative); Leukocyte Esterase Urine Negative (Negative); Nitrite Urine Negative (Negative); Protein Urine Negative (Negative); Specific Gravity Urine 1.012 (1.000-1.030); Urobilinogen Urine Negative (Negative); pH Urine 7.5 (4.5-7.5)
[2021-12-07 14:58] LABS: Pregnancy Test, Urine Negative (Negative)
[2021-12-07 15:20] LABS: Basophils # (auto) 0.01 K/uL (0-0.2); Basophils % (auto) 0.1 %; Eosinophils # (auto) 0.03 K/uL (0-0.5); Eosinophils % (auto) 0.3 %; Hematocrit (blood only) 41.6 % (37-47); Hemoglobin 14.5 g/dL (12.0-16.0); Immature Granulocytes # (auto) 0.01 K/uL (0.00-0.02); Immature Granulocytes % (auto) 0.1 %; Lymphocytes % (auto) 15.8 %; Mean Corpuscular Hemoglobin 29.2 pg (25-34); Mean Corpuscular Hgb Conc 34.9 g/dL (32-36); Mean Corpuscular Volume 83.9 fL (80-100); Mean Platelet Volume 11.6 fL (7.4-10.4); Monocytes # (auto) 0.38 K/uL (0.11-0.59); Monocytes % (auto) 4.3 %; Neutrophils # (auto) 7.03 K/uL (1.4-6.5); Neutrophils % (auto) 79.4 %; Platelet Count 201 K/uL (130-400); RDW Coefficient of Variation 12.5 % (11.5-14.5); RDW Standard Deviation 37.5 fL (36.4-46.3); Red Blood Count 4.96 M/uL (4.2-5.4); White Blood Count 8.86 K/uL (4.8-10.8)
[2021-12-07 15:28] LABS: Amphetamines+Metham, Urine Neg (Neg); Barbiturates, Urine Neg (Neg); Benzodiazepine, Urine Neg (Neg); Cocaine, Urine Neg (Neg); MDMA (Ecstacy), Urine Neg (Neg); Methadone, Urine Neg (Neg); Opiate, Urine Neg (Neg); Phencyclidine, Urine Neg (Neg)
[2021-12-07 15:45] LABS: Albumin Globulin Ratio 1.6 (0.9-2); Albumin Level 4.7 gm/dl (3.4-5.0); BUN Creatinine Ratio 11.6 (10-20); Bilirubin,Total 0.6 mg/dl (0.2-1.0); Calcium 9.5 mg/dl (8.5-10.1); Creatinine Clr Calc Pharmacy 112.3 ml/min; Est GFR (African American) 139.2 ml/min; Est GFR (Non-African American) 120.1 ml/min; Potassium 3.6 mmol/L (3.5-5.1); Total Protein 7.7 gm/dl (6.0-8.3)
[2021-12-07 15:46] LABS: Acetaminophen < 3 ug/ml (10-30); Salicylate < 3.0 mg/dl (3.0-30)
[2021-12-07] MEDS ORDERED: BISMUTH SUBSALICYLATE LIQD 236 ML PO PRN (18:19)
[2021-12-07] MEDS ORDERED: SODIUM CHLORIDE 0.65% NA SOLN 45 ML (OCEAN) PRN (18:19)
[2021-12-07] MEDS ORDERED: ALUMINUM/MAGNESIUM SUSP 30 ML UDC PO PRN (18:19)
[2021-12-07] MEDS ORDERED: ACETAMINOPHEN 325 MG TAB PO PRN (18:19)
[2021-12-07] MEDS ORDERED: MAGNESIUM HYDROXIDE SUSP 30 ML UDC PO PRN (18:19)
[2021-12-07] MEDS ORDERED: hydrOXYzine HCl 25 MG TAB PO PRN ×2 (18:19)
--- NOTE | 2021-12-08 07:50 | History & Physical ---
Date of Service December 08, 2021 Impression / Recommendations Impression 26 year old with a history of depression, anxiety and post- depression who was admitted for worsening depression and SI with potential plan of shooting herself after stopping escitalopram about one month ago. Diagnostically consistent with MDD with anxious distress. Some changes in sleep, racing thoughts that lasted a few days in the last week but no clear symptoms of lety nor family history of BPAD nor lety with prior SSRI monotherapy treatment. The patient is deemed unstable and requires psychiatric hospitalization for diagnostic clarification, safety and stabilization, medication management and development of further coping skills. Discussed medication treatment options in detail including SSRIs vs Wellbutrin. Discussed risks, benefits and alternatives. Patient would like to start sertraline for MDD and trazodone for insomnia. Reviewed side effects including but not limited to GI, MARTÍNEZ, vivid dreams, sexual side effects, risk of mood elevation/lety and counseled on black box warning of potential for emergence of or increased SI and need to let staff know should this occur or should they feel unsafe. Also discussed importance of seeking emergency care following discharge if this side effect occurs in the future. (1) Major depressive disorder, recurrent episode, severe with anxious distress: (2) Depression with suicidal ideation: 12/08/21: The patient was admitted to the [facility] ([facility]) on q15 min checks (behavioral with suicide precautions) for safety. The patient will participate in group, recreational, and milieu therapies and will be offered additional individual and family sessions as clinically appropriate. -trazodone 50mg qhs -sertraline 25mg qam Inventory Assets Strengths: good social supports, employed, has responded well to treatment in the past Needs: medication adjustment, outpatient supports, additional coping skills Risk Factors Assessment Acute risk high given access to guns, MDD, anxiety and SI. Chronic risk is low given few non-modifiable risk factors. Most significant modifiable risk factor is treating depression, safety planning, medication adjustment, additional outpatient supports and coping skills. Male: No : Yes Do You Have Access To A Gun?: Yes (at home, locked in gun safe, ammunition kept separate ) Health Problems: No Mental Health Diagnoses: Yes Substance Use Disorders: No Previous Attempt: No Family History of Suicide: No Previous Psychiatric Hospitalization: No Hopelessness: No Smoker: Yes Protective Factors Assessment : Yes Responsible for Young Children: Yes Employed: Yes ([employer]) Stable Relationships: Yes Supportive Family: Yes Good Rapport with Provider: Yes Psychiatric History Identifying Data RANDY PAN is a 26-year-old woman who currently lives in [place] with her and toddler, has a history of depression and anxiety, and was admitted on 12/07/21 18:19 on a 201 voluntary commitment for worsening depression and SI with plan . Chief Complaint "I push people away". History of Present Illness Randy presents for admission for worsening depression and SI. She was seen by her primary care provider yesterday who encouraged her to go to the ED given intensifying symptoms of SI for the last 7-10 days. 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 She had been started on escitalopram in July 2020 which she was taking up until last month at which point she stopped it because she had been feeling better and then when her mood worsened her refills had and "things have gotten much worse". She endorses depressive symptoms worsening over the last two weeks including low mood, helplessness, anhedonia, social isolation, tearfulness, decreased concentration, decreased sleep, decreased appetite, and SI with potential plan of using a gun in the home to shoot herself. Has been having SI over the last week occurring multiple times per day and lasting until she could get ahold of someone to talk to like her good friend. She also been experiencing increased anxiety including heart racing, no panic attacks, worries about discussing her depression with others. Struggles with trusting others at times, wants to push people away. Psychiatric ROS notable for no history lety (did have a few days last week of three days of decreased sleep, increased energy, no change in rate of speech, racing thoughts and smoking cigarettes/drinking alcohol but no other symptoms of lety: no hypersexual/legal/risk taking behaviors), denial of psychosis, denial of eating disorder, denial OCD, no hx self-harm. Past Psychiatric History Previous Psych History: Post- depression in December 2019 Current Psychiatric Diagnosis: MDD, TORIN Outpatient Services: none Previous Psych Admissions: n/a Do You Have Access To A Gun?: Yes (at home, locked in gun safe, ammunition kept separate ) History of Previous Suicide Attempt: No Describe Attempts in the Past: Did not pull trigger, but had rehearsal behavior of gun as a teen. Past Medication Trials: lexapro 10mg starting in Jul 2020 - Oct 2021 Past Head Trauma/Neuro History History of Concussion/Seizure: Yes (1 concussion at age 19 playing softball, required no medical tx) Allergies Allergy/AdvReac Type Severity Reaction Status Date / Time No Known Drug Allergies Allergy NKDA Verified 12/07/21 16:25 Home Medications Medication Instructions Recorded Confirmed Type escitalopram oxalate 10 mg tablet 10 mg PO DAILY #90 tab 12/06/21 12/07/21 Rx (Lexapro) multivitamin 1 tab PO DAILY 12/07/21 12/07/21 History Family History Family History of: Depression (mother) and Anxiety (mother) Alcohol History Hx of Alcohol Use Over the Past 12 Months: Yes AUDIT Total Score: 5 Usually never drinks, last week drank for three nights, had about 3-4 shots worth of hard liquor in a mixed drinks, none since then. No hx of negative consequences. Smoking Use Have You Smoked or Used Tobacco Products in the Last 30 Days: Yes tobacco type: cigarettes Smoking Status: Current some day smoker (years ago and last week smoked some cigarettes and a few this week ) Smoking packs per day: 0.3 Substance History Hx of Prescription Med Misuse Over the Past 12 Months: No Hx of Over the Counter Med Misuse Over the Past 12 Months: No Hx of Inhalent Misuse Over the Past 12 Months: No Hx of Organic Substance Use Over the Past 12 Months: No Hx of Illegal Substances/Street Drug Use Over Past 12 Months: No Problems as a Result of Past Substance Use: None Identified Problems as a Result of Past Substance Use Comments: Recent increased drinking during the last week. Personal History Living Arrangements: Home (with and son ) Childhood: Grew up in [facility]. Parents are . Strained relationship older brother. Talks with parents. 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 ) Marital Status: Number Of Children: 1-son who is 2 Beliefs That Will Affect Care: None Current Legal Problems: No Hx Legal Problems: No Hx Traumatic Life Events: No Patient History Medical History TORIN (generalized anxiety disorder) MDD (major depressive disorder) Surgical History History of tooth extraction S/P eye surgery Family History Uncle Diabetes paternal uncle Grandfather (Paternal) Prostate cancer Denies family history of Ovarian cancer Myocardial infarction Breast cancer Colorectal cancer Social History Smoking Status: Current some day smoker (years ago and last week smoked some cigarettes and a few this week ) Second Hand Exposure: No; Hx Alcohol Use: No (social) Hx Substance Use: No Preferred Language: Tanzanian Communication Ability: Effective Certified Ophthalmic Technologist Required: No Beliefs That Will Affect Care: None marital status: marital status details: Schuyler (26) [phone] Current Living Situation: Spouse Current Living Situation Comment: lives with spouse and 1 dog current occupational status: employed current occupation: [employer] @ [employer] Feels Safe at Home: Yes Assistive Devices: None Review of Systems Review of Systems: All systems reviewed & are unremarkable except as noted in HPI & below Physical Exam Psychiatric: Orientation: alert and oriented x 3 Apperance: appropriately dressed and appropriately groomed Eye Contact: good eye contact Motor Behavior: no abnormal motor movements Speech: normal rate/rhythm/volume of speech Affect: + depressed affect, + anxious affect and + tearful affect Mood: + depressed mood and + anxious mood Thought Process: goal directed thought process Thought Content: reality based without delusions Suicidal Thoughts: denies suicidal thoughts (feels safe in the hospital) Homicidal Thoughts: denies homicidal thoughts Hallucinations: no auditory hallucinations and no visual hallucinations Cognition: recent memory grossly intact, remote memory grossly intact, attention grossly intact and language gr ossly intact Estimated Intelligence: consistent with education level Insight: + fair insight Judgement: + fair judgement Vital Signs (Past 24 Hours): Last Vital Signs Temp 37.0 C 12/08/21 06:00 Pulse 102 H 12/08/21 06:50 Resp 14 12/08/21 06:00 BP 105/71 12/08/21 06:50 Pulse Ox 99 12/07/21 21:20 Exam Statement: A physical exam was performed in the ED by Dr. Mays for the purposes of medical clearance. I accept that physical as correct and adequate for the purposes of the inpatient physical exam. Results & Data ([facility]) Laboratory Results Laboratory Results - last 24 hr 12/07/21 12/07/21 12/07/21 14:41 14:41 14:41 WBC RBC Hgb Hct MCV MCH MCHC RDW Std Deviation RDW Coeff of [place] Plt Count MPV Immature Gran % (Auto) Neut % (Auto) Lymph % (Auto) [place] % (Auto) Eos % (Auto) Baso % (Auto) Neut # (Auto) Lymph # (Auto) [place] # (Auto) Eos # (Auto) Baso # (Auto) Immature Gran # (Auto) Sodium Potassium Chloride Carbon Dioxide Anion Gap BUN Creatinine Est Cr Clr Drug Dosing Est GFR ( Amer) Est GFR (Non-Af Amer) BUN/Creatinine Ratio Glucose Calcium Total Bilirubin AST ALT Alkaline Phosphatase Total Protein Albumin Globulin Albumin/Globulin Ratio TSH Urine Color Yellow Urine Appearance Clear Urine pH 7.5 Ur Specific [place] 1.012 Urine Protein Negative Urine Glucose (UA) Negative Urine Ketones 1+ H Urine Blood Negative Urine Nitrite Negative Urine Bilirubin Negative Urine Urobilinogen Negative Ur Leukocyte Esterase Negative Urine Test Negative Salicylates Urine Opiates Screen Neg Ur Methadone, Qual Neg Acetaminophen Urine Barbiturates Neg Ur Phencyclidine (PCP) Neg U Amphetamin/Meth Scrn Neg MDMA (Ecstasy) Screen Neg U Benzodiazepines Scrn Neg Ur Cocaine Metabolite Neg U Marijuana (THC) Screen Neg Ethyl Alcohol mg/dL SARS-CoV-2, RNA, NAAT 12/07/21 12/07/21 12/07/21 15:02 15:02 15:02 WBC 8.86 RBC 4.96 Hgb 14.5 Hct 41.6 MCV 83.9 MCH 29.2 MCHC 34.9 RDW Std Deviation 37.5 RDW Coeff of [place] 12.5 Plt Count 201 MPV 11.6 H Immature Gran % (Auto) 0.1 Neut % (Auto) 79.4 Lymph % (Auto) 15.8 [place] % (Auto) 4.3 Eos % (Auto) 0.3 Baso % (Auto) 0.1 Neut # (Auto) 7.03 H Lymph # (Auto) 1.40 [place] # (Auto) 0.38 Eos # (Auto) 0.03 Baso # (Auto) 0.01 Immature Gran # (Auto) 0.01 Sodium 138 Potassium 3.6 Chloride 106 Carbon Dioxide 26 Anion Gap 6 BUN 8 Creatinine 0.69 Est Cr Clr Drug Dosing 112.3 Est GFR ( Amer) 139.2 Est GFR (Non-Af Amer) 120.1 BUN/Creatinine Ratio 11.6 Glucose 87 Calcium 9.5 Total Bilirubin 0.6 AST 14 ALT 13 Alkaline Phosphatase 49 Total Protein 7.7 Albumin 4.7 Globulin 3.0 Albumin/Globulin Ratio 1.6 TSH 1.020 Urine Color Urine Appearance Urine pH Ur Specific [place] Urine Protein Urine Glucose (UA) Urine Ketones Urine Blood Urine Nitrite Urine Bilirubin Urine Urobilinogen Ur Leukocyte Esterase Urine Test Salicylates Urine Opiates Screen Ur Methadone, Qual Acetaminophen Urine Barbiturates Ur Phencyclidine (PCP) U Amphetamin/Meth Scrn MDMA (Ecstasy) Screen U Benzodiazepines Scrn Ur Cocaine Metabolite U Marijuana (THC) Screen Ethyl Alcohol mg/dL SARS-CoV-2, RNA, NAAT 12/07/21 12/07/21 12/07/21 15:02 15:02 16:17 WBC RBC Hgb Hct MCV MCH MCHC RDW Std Deviation RDW Coeff of [place] Plt Count MPV Immature Gran % (Auto) Neut % (Auto) Lymph % (Auto) [place] % (Auto) Eos % (Auto) Baso % (Auto) Neut # (Auto) Lymph # (Auto) [place] # (Auto) Eos # (Auto) Baso # (Auto) Immature Gran # (Auto) Sodium Potassium Chloride Carbon Dioxide Anion Gap BUN Creatinine Est Cr Clr Drug Dosing Est GFR ( Amer) Est GFR (Non-Af Amer) BUN/Creatinine Ratio Glucose Calcium Total Bilirubin AST ALT Alkaline Phosphatase Total Protein Albumin Globulin Albumin/Globulin Ratio TSH Urine Color Urine Appearance Urine pH Ur Specific [place] Urine Protein Urine Glucose (UA) Urine Ketones Urine Blood Urine Nitrite Urine Bilirubin Urine Urobilinogen Ur Leukocyte Esterase Urine Test Salicylates < 3.0 L Urine Opiates Screen Ur Methadone, Qual Acetaminophen < 3 L Urine Barbiturates Ur Phencyclidine (PCP) U Amphetamin/Meth Scrn MDMA (Ecstasy) Screen U Benzodiazepines Scrn Ur Cocaine Metabolite U Marijuana (THC) Screen Ethyl Alcohol mg/dL < 10.0 SARS-CoV-2, RNA, NAAT NEGATIVE Current Inpatient Medications Current Inpatient Medications: Current Inpatient Medications Acetaminophen (Acetaminophen 325 Mg Tab) 650 mg PO Q4H PRN PRN Reason: Headache or Minor Fever Stop: 01/06/22 18:18 Al Hydrox/Mg Hydrox/Simethicone (Aluminum/Magnesium Susp 30 Ml Udc) 30 ml PO Q4H PRN PRN Reason: GI Upset Stop: 01/06/22 18:18 Bismuth Subsalicylate (Bismuth Subsalicylate Liqd 236 Ml) 15 ml PO PRN PRN PRN Reason: Loose Stool Stop: 01/06/22 18:18 Hydroxyzine HCl (Hydroxyzine Hcl 25 Mg Tab) 50 mg PO HSZ PRN PRN Reason: Insomnia Stop: 01/06/22 18:18 Hydroxyzine HCl (Hydroxyzine Hcl 25 Mg Tab) 25 mg PO Q4H PRN PRN Reason: Anxiety Stop: 01/06/22 18:18 Influenza Virus Vaccine Quadrival (Fluarix Quadrivalent 0.5 Ml Syr) 0.5 ml IM .ONCE ONE Stop: 12/08/21 08:01 Magnesium Hydroxide (Magnesium Hydroxide Susp 30 Ml Udc) 30 ml PO DAILY PRN PRN Reason: Constipation Stop: 01/06/22 18:18 Sodium Chloride (Sodium Chloride 0.65% Na Soln 45 Ml ([place])) 1 - 2 sprays NA PRN PRN PRN Reason: Nasal Dryness/Congestion Stop: 01/06/22 18:18
[2021-12-08] MEDS ORDERED: FLUARIX QUADRIVALENT 0.5 ML SYR IM ONE (08:00)
[2021-12-08] MEDS: traZODone HCL 50 MG TAB PO SCH (21:14)
[2021-12-09] MEDS: SERTRALINE HCL 50 MG TABLET PO SCH (08:44)
[2021-12-09] MEDS: MULTIVITAMIN TAB PO SCH (08:44)
--- NOTE | 2021-12-09 08:54 | Psychiatric Progress Note ---
Date of Service December 09, 2021 Impression / Recommendations Impression 26 year old with a history of depression, anxiety and post- depression who was admitted for worsening depression and SI with potential plan of shooting herself after stopping escitalopram about one month ago. Diagnostically consistent with MDD with anxious distress. Some changes in sleep, racing thoughts that lasted a few days in the last week but no clear symptoms of lety nor family history of BPAD nor lety with prior SSRI monotherapy treatment. The patient is deemed unstable and requires psychiatric hospitalization for diagnostic clarification, safety and stabilization, medication management and development of further coping skills. 12/09/21: Tolerating initiation of sertraline and trazodone with improved sleep. Some GI side effects so will proceed with slower titration. Ongoing anxiety for which will use Vistaril symptomatically as needed until sertraline is able to take full effect. (1) Major depressive disorder, recurrent episode, severe with anxious distress: (2) Depression with suicidal ideation: 12/09/21: Continue with medications. Working on coping skills development. 12/08/21: The patient was admitted to the [facility] ([facility] mental health unit) on q15 min checks (behavioral with suicide precautions) for safety. The patient will participate in group, recreational, and milieu therapies and will be offered additional individual and family sessions as clinically appropriate. -trazodone 50mg qhs -sertraline 25mg qam Inventory Assets Strengths: good social supports, employed, has responded well to treatment in the past Needs: medication adjustment, outpatient supports, additional coping skills Risk Factors Assessment Male: No : Yes Do You Have Access To A Gun?: Yes (Able to be secured in the home) Health Problems: No Mental Health Diagnoses: Yes Substance Use Disorders: No Previous Attempt: No Family History of Suicide: No Previous Psychiatric Hospitalization: No Hopelessness: No Smoker: Yes Protective Factors Assessment : Yes Responsible for Young Children: Yes Employed: Yes ([employer]) Stable Relationships: Yes Supportive Family: Yes Good Rapport with Provider: Yes Interval History Identifying Information RUFINO PAN is a 26-year-old woman who currently lives in [place] with her and toddler, has a history of depression and anxiety, and was admitted on 12/07/21 18:19 on a 201 voluntary commitment for worsening depression and SI with plan . Chief Complaint "I'm alright". Review of Systems Sleep Information Total Hours of Sleep: 6.25 Meal Information Percent Meal Consumed - Breakfast: 100 Percent Meal Consumed - Lunch: 50 Percent Meal Consumed - Dinner: 90 Subjective Subjective Patient was seen & assessed and interval progress reviewed with treatment team nursing and social work. Attended groups and processing stressors. Misses her son as this is the first time she's been away from her son but was able to facetime with him last night. Remains able to safety contract on the unit. Today reports good sleep last night with trazodone was very pleased with how well it worked. Tolerating initiation of sertraline, less appetite at lunch but no other side effects. No SI today. Tearful when thinking about being away from her son but glad she's getting treatment due to how intense depression had gotten. Still having periods of anxiety with heart racing, discussed option to try Vistaril if other coping strategies are ineffective. Physical Exam Psychiatric Orientation: alert and oriented x 3 Apperance: appropriately dressed and appropriately groomed Eye Contact: good eye contact Motor Behavior: no abnormal motor movements Speech: normal rate/rhythm/volume of speech Affect: + depressed affect, + anxious affect and + tearful affect Mood: + depressed mood and + anxious mood Thought Process: goal directed thought process Thought Content: reality based without delusions Suicidal Thoughts: denies suicidal thoughts (feels safe in the hospital) Homicidal Thoughts: denies homicidal thoughts Hallucinations: no auditory hallucinations and no visual hallucinations Cognition: recent memory grossly intact, remote memory grossly intact, attention grossly intact and language grossly intact Estimated Intelligence: consistent with education level Insight: + fair insight Judgement: + fair judgement Vital Signs (Past 24 Hours) Last Vital Signs Temp 36.5 C 12/09/21 06:00 Pulse 91 H 12/09/21 06:52 Resp 14 12/09/21 06:00 BP 97/67 L 12/09/21 06:52 Pulse Ox 99 12/07/21 21:20 Results & Data ([facility]) Current Inpatient Medications Current Inpatient Medications: Current Inpatient Medications Acetaminophen (Acetaminophen 325 Mg Tab) 650 mg PO Q4H PRN PRN Reason: Headache or Minor Fever Stop: 01/06/22 18:18 Al Hydrox/Mg Hydrox/Simethicone (Aluminum/Magnesium Susp 30 Ml Udc) 30 ml PO Q4H PRN PRN Reason: GI Upset Stop: 01/06/22 18:18 Bismuth Subsalicylate (Bismuth Subsalicylate Liqd 236 Ml) 15 ml PO PRN PRN PRN Reason: Loose Stool Stop: 01/06/22 18:18 Hydroxyzine HCl (Hydroxyzine Hcl 25 Mg Tab) 50 mg PO HSZ PRN PRN Reason: Insomnia Stop: 01/06/22 18:18 Hydroxyzine HCl (Hydroxyzine Hcl 25 Mg Tab) 25 mg PO Q4H PRN PRN Reason: Anxiety Stop: 01/06/22 18:18 Magnesium Hydroxide (Magnesium Hydroxide Susp 30 Ml Udc) 30 ml PO DAILY PRN PRN Reason: Constipation Stop: 01/06/22 18:18 Multivitamins (Multivitamin Tab) 1 tab PO QAM ZHANE Stop: 01/08/22 08:59 Last Admin: 12/09/21 08:44 Dose: 1 tab Documented by: Sertraline HCl (Sertraline Hcl 50 Mg Tablet) 25 mg PO QAM ZHANE Stop: 01/08/22 08:59 Last Admin: 12/09/21 08:44 Dose: 25 mg Documented by: Sodium Chloride (Sodium Chloride 0.65% Na Soln 45 Ml ([place])) 1 - 2 sprays NA PRN PRN PRN Reason: Nasal Dryness/Congestion Stop: 01/06/22 18:18 Trazodone HCl (Trazodone Hcl 50 Mg Tab) 50 mg PO HS ZHANE Stop: 01/07/22 21:59 Last Admin: 12/08/21 21:14 Dose: 50 mg Documented by: Post Discharge Appointments Primary Care Physician Name Of Family Doctor: Dr. Arvin Santo
[2021-12-09] MEDS: traZODone HCL 50 MG TAB PO SCH (21:28)
--- NOTE | 2021-12-10 08:59 | Psychiatric Progress Note ---
Date of Service December 10, 2021 Impression / Recommendations Impression 26 year old with a history of depression, anxiety and post- depression who was admitted for worsening depression and SI with potential plan of shooting herself after stopping escitalopram about one month ago. Diagnostically consistent with MDD with anxious distress. Some changes in sleep, racing thoughts that lasted a few days in the last week but no clear symptoms of lety nor family history of BPAD nor lety with prior SSRI monotherapy treatment. The patient is deemed unstable and requires psychiatric hospitalization for diagnostic clarification, safety and stabilization, medication management and development of further coping skills. 12/10/21: Finds trazodone helpful for sleep, slightly less effective last night in setting of increased anxiety. Increasing Vistaril prn to better target anxiety which she will try if needed today until sertraline takes full effect over next few weeks. Improved appetite this morning and no other side effects from sertraline. Had some bright red blood in stool this morning, will continue to monitor closely-no current symptoms consistent with concern for GI bleed, vital signs stable, she agrees to alert providers should this occur again or should any new physical symptoms occur. (1) Major depressive disorder, recurrent episode, severe with anxious distress: (2) Depression with suicidal ideation: 12/10/21: Continue with medications. Increasing Vistaril to 50mg TID prn for anxiety. Needs family meeting. 12/09/21: Continue with medications. Working on coping skills development. 12/08/21: The patient was admitted to the [facility] ([facility] mental health unit) on q15 min checks (behavioral with suicide precautions) for safety. The patient will participate in group, recreational, and milieu therapies and will be offered additional individual and family sessions as clinically appropriate. -trazodone 50mg qhs -sertraline 25mg qam Inventory Assets Strengths: good social supports, employed, has responded well to treatment in the past Needs: medication adjustment, outpatient supports, additional coping skills Risk Factors Assessment Male: No : Yes Do You Have Access To A Gun?: Yes (Able to be secured in the home) Health Problems: No Mental Health Diagnoses: Yes Substance Use Disorders: No Previous Attempt: No Family History of Suicide: No Previous Psychiatric Hospitalization: No Hopelessness: No Smoker: Yes Protective Factors Assessment : Yes Responsible for Young Children: Yes Employed: Yes ([employer]) Stable Relationships: Yes Supportive Family: Yes Good Rapport with Provider: Yes Interval History Identifying Information RUFINO PAN is a 26-year-old woman who currently lives in [place] with her and toddler, has a history of depression and anxiety, and was admitted on 12/07/21 18:19 on a 201 voluntary commitment for worsening depression and SI with plan. Chief Complaint "I'm ok, pretty anxious today". Review of Systems Sleep Information Total Hours of Sleep: 8 Meal Information Percent Meal Consumed - Breakfast: 75 Percent Meal Consumed - Lunch: 25 Percent Meal Consumed - Dinner: 30 Subjective Subjective Patient was seen & assessed and interval progress reviewed with treatment team mohit watson and social work. Attending groups. Still experiencing a lot of anxiety that comes and goes. Took prn Vistaril last night which did not help with anxiety. Processing feelings of rejection and negative automatic thoughts. Facetimed with and son. Family meeting today. Son has neurology appointment on Monday. Some decreased appetite from sertraline. Today reports ongoing anxiety. Discussed coping skills as well as pharmacologic options. Will increase vistaril prn dose to see if higher dose is more effective which she consents to. Improved appetite this morning for breakfast. No other side effects from trazodone or sertraline. Had bowel movement this morning with some bright red blood on stool. She had flushed before stool could be further examined. She denies any dizziness, no emesis, no tar colored stool. Denies hard stool or straining, denies hx hemorrhoids. Is currently menstruating but feels this was part of stool. Discussed low risk of increased bleeding with SSRIs but typically this occurs with upper GI bleeds especially with no history of GI bleeds. If symptoms re-occur or she develops any symptoms she will alert nursing so stool can be examined and hospitalists involved if necessary. Physical Exam Psychiatric Orientation: alert and oriented x 3 Apperance: appropriately dressed and appropriately groomed Eye Contact: good eye contact Motor Behavior: no abnormal motor movements Speech: normal rate/rhythm/volume of speech Affect: + depressed affect and + anxious affect Mood: + depressed mood and + anxious mood Thought Process: goal directed thought process Thought Content: reality based without delusions Suicidal Thoughts: denies suicidal thoughts Homicidal Thoughts: denies homicidal thoughts Hallucinations: no auditory hallucinations and no visual hallucinations Cognition: recent memory grossly intact, remote memory grossly intact, attention grossly intact and language grossly intact Estimated Intelligence: consistent with education level Insight: + fair insight Judgement: + fair judgement Vital Signs (Past 24 Hours) Last Vital Signs Temp 36.5 C 12/10/21 06:00 Pulse 76 12/10/21 06:16 Resp 16 12/10/21 06:00 BP 115/80 12/10/21 06:16 Pulse Ox 99 12/07/21 21:20 Results & Data ([facility]) Current Inpatient Medications Current Inpatient Medications: Current Inpatient Medications Acetaminophen (Acetaminophen 325 Mg Tab) 650 mg PO Q4H PRN PRN Reason: Headache or Minor Fever Stop: 01/06/22 18:18 Al Hydrox/Mg Hydrox/Simethicone (Aluminum/Magnesium Susp 30 Ml Udc) 30 ml PO Q4H PRN PRN Reason: GI Upset Stop: 01/06/22 18:18 Bismuth Subsalicylate (Bismuth Subsalicylate Liqd 236 Ml) 15 ml PO PRN PRN PRN Reason: Loose Stool Stop: 01/06/22 18:18 Hydroxyzine HCl (Hydroxyzine Hcl 25 Mg Tab) 50 mg PO HSZ PRN PRN Reason: Insomnia Stop: 01/06/22 18:18 Hydroxyzine HCl (Hydroxyzine Hcl 25 Mg Tab) 25 mg PO Q4H PRN PRN Reason: Anxiety Stop: 01/06/22 18:18 Last Admin: 12/09/21 17:23 Dose: 25 mg Documented by: Magnesium Hydroxide (Magnesium Hydroxide Susp 30 Ml Udc) 30 ml PO DAILY PRN PRN Reason: Constipation Stop: 01/06/22 18:18 Multivitamins (Multivitamin Tab) 1 tab PO QAM [facility] Stop: 01/08/22 08:59 Last Admin: 12/09/21 08:44 Dose: 1 tab Documented by: Sertraline HCl (Sertraline Hcl 50 Mg Tablet) 25 mg PO QAM ZHANE Stop: 01/08/22 08:59 Last Admin: 12/09/21 08:44 Dose: 25 mg Documented by: Sodium Chloride (Sodium Chloride 0.65% Na Soln 45 Ml ([place])) 1 - 2 sprays NA PRN PRN PRN Reason: Nasal Dryness/Congestion Stop: 01/06/22 18:18 Trazodone HCl (Trazodone Hcl 50 Mg Tab) 50 mg PO HS ZHANE Stop: 01/07/22 21:59 Last Admin: 12/09/21 21:28 Dose: 50 mg Documented by: Post Discharge Appointments Primary Care Physician Name Of Family Doctor: Dr. Arvin Santo
[2021-12-10] MEDS: MULTIVITAMIN TAB PO SCH (09:56)
[2021-12-10] MEDS: SERTRALINE HCL 50 MG TABLET PO SCH (09:56)
[2021-12-10] MEDS: hydrOXYzine HCl 25 MG TAB PO PRN (12:14)
[2021-12-10] MEDS: traZODone HCL 50 MG TAB PO SCH (21:56)
[2021-12-11] MEDS: MULTIVITAMIN TAB PO SCH (09:14)
[2021-12-11] MEDS: SERTRALINE HCL 50 MG TABLET PO SCH (09:14)
[2021-12-11] MEDS: hydrOXYzine HCl 25 MG TAB PO PRN ×2 (11:19→18:30)
--- NOTE | 2021-12-11 13:30 | Psychiatric Progress Note ---
Date of Service December 11, 2021 Impression / Recommendations Impression 26 year old with a history of depression, anxiety and post- depression who was admitted for worsening depression and SI with potential plan of shooting herself after stopping escitalopram about one month ago. Diagnostically consistent with MDD with anxious distress. Some changes in sleep, racing thoughts that lasted a few days in the last week but no clear symptoms of lety nor family history of BPAD nor lety with prior SSRI monotherapy treatment. The patient is deemed unstable and requires psychiatric hospitalization for diagnostic clarification, safety and stabilization, medication management and de velopment of further coping skills. 12/11/21: As per Dr. Snider above. Improving. (1) Major depressive disorder, recurrent episode, severe with anxious distress: (2) Depression with suicidal ideation: 12/11/21: increase Zoloft to 50 mg daily. Safety planning. 12/10/21: Continue with medications. Increasing Vistaril to 50mg TID prn for anxiety. Needs family meeting. 12/09/21: Continue with medications. Working on coping skills development. 12/08/21: The patient was admitted to the [facility] ([facility]) on q15 min checks (behavioral with suicide precautions) for safety. The patient will participate in group, recreational, and milieu therapies and will be offered additional individual and family sessions as clinically appropriate. -trazodone 50mg qhs -sertraline 25mg qam Inventory Assets Strengths: good social supports, employed, has responded well to treatment in the past Needs: medication adjustment, outpatient supports, additional coping skills Risk Factors Assessment Male: No : Yes Do You Have Access To A Gun?: Yes (Able to be secured in the home) Health Problems: No Mental Health Diagnoses: Yes Substance Use Disorders: No Previous Attempt: No Family History of Suicide: No Previous Psychiatric Hospitalization: No Hopelessness: No Smoker: Yes Protective Factors Assessment : Yes Responsible for Young Children: Yes Employed: Yes ([employer]) Stable Relationships: Yes Supportive Family: Yes Good Rapport with Provider: Yes Interval History Identifying Information RUFINO PAN is a 26-year-old woman who currently lives in [place] with her and toddler, has a history of depression and anxiety, and was admitted on 12/07/21 18:19 on a 201 voluntary commitment for worsening depression and SI with plan. Chief Complaint "there is alot to unpack", referring to anger at her parents Review of Systems Sleep Information Total Hours of Sleep: 6.5 Meal Information Percent Meal Consumed - Breakfast: 75 Percent Meal Consumed - Lunch: 75 Percent Meal Consumed - Dinner: 75 Subjective Subjective Patient was seen & assessed and interval progress reviewed with nursing and social work. reports therapeutic work here has been helpful in her seeing that alot of her behaviors stem from fears of abandonment and it is reality based that parents were heavily involved in her brother's wrestling career and less available to attend her games, etc. GI issues have improved and she is eating better. Still overwhelmed but good family meeting with , misses her son but also isn't sure she is ready yet to manage intermittent SI outside of hospital. Physical Exam Psychiatric Orientation: alert and oriented x 3 Apperance: appropriately dressed and appropriately groomed Eye Contact: good eye contact Motor Behavior: no abnormal motor movements Speech: normal rate/rhythm/volume of speech Affect: + depressed affect and + anxious affect Mood: + depressed mood and + anxious mood Thought Process: goal directed thought process Thought Content: reality based without delusions Suicidal Thoughts: denies suicidal thoughts Homicidal Thoughts: denies homicidal thoughts Hallucinations: no auditory hallucinations and no visual hallucinations Cognition: recent memory grossly intact, remote memory grossly intact, attention grossly intact and language grossly intact Estimated Intelligence: consistent with education level Insight: + fair insight Judgement: + fair judgement Vital Signs (Past 24 Hours) Last Vital Signs Temp 36.7 C 12/11/21 06:43 Pulse 111 H 12/11/21 06:44 Resp 16 12/11/21 06:43 BP 107/74 12/11/21 06:44 Pulse Ox 99 12/07/21 21:20 Results & Data ([facility]) Current Inpatient Medications Current Inpatient Medications: Current Inpatient Medications Acetaminophen (Acetaminophen 325 Mg Tab) 650 mg PO Q4H PRN PRN Reason: Headache or Minor Fever Stop: 01/06/22 18:18 Al Hydrox/Mg Hydrox/Simethicone (Aluminum/Magnesium Susp 30 Ml Udc) 30 ml PO Q4H PRN PRN Reason: GI Upset Stop: 01/06/22 18:18 Bismuth Subsalicylate (Bismuth Subsalicylate Liqd 236 Ml) 15 ml PO PRN PRN PRN Reason: Loose Stool Stop: 01/06/22 18:18 Hydroxyzine HCl (Hydroxyzine Hcl 25 Mg Tab) 50 mg PO HSZ PRN PRN Reason: Insomnia Stop: 01/06/22 18:18 Hydroxyzine HCl (Hydroxyzine Hcl 25 Mg Tab) 50 mg PO TID PRN PRN Reason: Anxiety Stop: 01/06/22 18:18 Last Admin: 12/11/21 11:19 Dose: 50 mg Documented by: Magnesium Hydroxide (Magnesium Hydroxide Susp 30 Ml Udc) 30 ml PO DAILY PRN PRN Reason: Constipation Stop: 01/06/22 18:18 Multivitamins (Multivitamin Tab) 1 tab PO QAM [facility] Stop: 01/08/22 08:59 Last Admin: 12/11/21 09:14 Dose: 1 tab Documented by: Sertraline HCl (Sertraline Hcl 50 Mg Tablet) 25 mg PO QAM [facility]ANE Stop: 01/08/22 08:59 Last Admin: 12/11/21 09:14 Dose: 25 mg Documented by: Sodium Chloride (Sodium Chloride 0.65% Na Soln 45 Ml ([place])) 1 - 2 sprays NA PRN PRN PRN Reason: Nasal Dryness/Congestion Stop: 01/06/22 18:18 Trazodone HCl (Trazodone Hcl 50 Mg Tab) 50 mg PO HS ZHANE Stop: 01/07/22 21:59 Last Admin: 12/10/21 21:56 Dose: 50 mg Documented by: Mental Health & Subst Abuse Tx Psychiatrist Name of Psychiatrist: [facility]'s Date of Appointment with Psychiatrist: 01/11/22 Time of Appointment with Psychiatrist: 8:30 AM Psychiatric Appointment Comment: [address] [facility], [place] (call to reschedule or cancel) Therapist [facility] Therapist's Date of Therapist Appointment: 12/22/21 Time of Therapist Appointment: 10:30 AM Therapy Appointment Comment: [address] [facility] [address], [place] [address], [place] [address] Post Discharge Appointments Primary Care Physician Name Of Family Doctor: [facility] PA-C Primary Care Date of Appointment with PCP: 12/17/21 Time of Appointment with PCP: 10:00 AM Provider Appointment Comment: [facility] [address], [place] [id number]
[2021-12-11] MEDS: traZODone HCL 50 MG TAB PO SCH (21:34)
[2021-12-12] MEDS: MULTIVITAMIN TAB PO SCH (08:47)
[2021-12-12] MEDS ORDERED: SERTRALINE HCL 50 MG TABLET PO SCH (09:00)
--- NOTE | 2021-12-12 09:03 | Discharge Summary ---
Date of Service December 12, 2021 History of Present Illness As per Dr. Snider on admission: Randy presents for admission for worsening depression and SI. She was seen by her primary care provider yesterday who encouraged her to go to the ED given intensifying symptoms of SI for the last 7-10 days. 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 She had been started on escitalopram in July 2020 which she was taking up until last month at which point she stopped it because she had been feeling better and then when her mood worsened her refills had and "things have gotten much worse". She endorses depressive symptoms worsening over the last two weeks including low mood, helplessness, anhedonia, social isolation, tearfulness, decreased concentration, decreased sleep, decreased appetite, and SI with potential plan of using a gun in the home to shoot herself. Has been having SI over the last week occurring multiple times per day and lasting until she could get ahold of someone to talk to like her good friend. She also been experiencing increased anxiety including heart racing, no panic attacks, worries about discussing her depression with others. Struggles with trusting others at times, wants to push people away. Psychiatric ROS notable for no history lety (did have a few days last week of three days of decreased sleep, increased energy, no change in rate of speech, racing thoughts and smoking cigarettes/drinking alcohol but no other symptoms of lety: no hypersexual/legal/risk taking behaviors), denial of psychosis, denial of eating disorder, denial OCD, no hx self-harm. Physical Exam Psychiatric See admission H&P and DOD assessment. Vital Signs (Past 24 Hours) Last Vital Signs Temp 36.8 C 12/12/21 06:34 Pulse 134 H 12/12/21 06:35 Resp 16 12/12/21 06:34 BP 110/74 12/12/21 06:35 Pulse Ox 99 12/07/21 21:20 Principal Diagnosis major depressive disorder Psychiatric Data See daily stay summary. In short, safety was maintained and the patient was cooperative with care. Medication changes included cross taper Lexapro in favor of Zoloft and they tolerated this with minimal GI side effects. The dose of Zoloft was increased to 50 mg on the am of discharge and she was directed to cut pill in half if GI side effects return/are intolerable until seen by her outpatient provider. A family session was held and safety plan was completed prior to discharge. Day of Discharge Assessment Today the patient voices readiness for discharge. They note improvement in mood and deny thoughts to harm self or others. Thoughts remain organized and they are improved from admission. There is no evidence of psychosis. They agree to take mediations as prescribed and keep follow-up appointments. They are stable for discharge to outpatient level of care. Transition of Care Transition Of Care Record: was reviewed with the patient Advance Directives Advance Directives Information Provided: Yes Advance Directives: No (doesn't want) Mental Health Advance Directive: No Advance Directives on File: No Living Will: No Power of Commissioner Public Works: No Advance Directives Reason:: Declines as Mental Health Visit. Risk Factors Assessment Male: No : Yes Do You Have Access To A Gun?: Yes (Able to be secured in the home) Health Problems: No Mental Health Diagnoses: Yes Substance Use Disorders: No Previous Attempt: No Family History of Suicide: No Previous Psychiatric Hospitalization: No Hopelessness: No Smoker: Yes Protective Factors Assessment : Yes Responsible for Young Children: Yes Employed: Yes ([employer]) Stable Relationships: Yes Supportive Family: Yes Good Rapport with Provider: Yes Tobacco Cessation at Discharge Tobacco Cessation Medication Prescribed at Discharge: Not Applicable/Non-Smoker Total Time Total Time Spent: Greater Than 30 Minutes Total Time Includes: Examination of the patient, Discharge Planning and Medication Reconciliation Discharge Data Lab Results 12/07/21 12/07/21 12/07/21 14:41 14:41 14:41 WBC RBC Hgb Hct MCV MCH MCHC RDW Std Deviation RDW Coeff of [place] Plt Count MPV Immature Gran % (Auto) Neut % (Auto) Lymph % (Auto) [place] % (Auto) Eos % (Auto) Baso % (Auto) Neut # (Auto) Lymph # (Auto) [place] # (Auto) Eos # (Auto) Baso # (Auto) Immature Gran # (Auto) Sodium Potassium Chloride Carbon Dioxide Anion Gap BUN Creatinine Est Cr Clr Drug Dosing Est GFR ( Amer) Est GFR (Non-Af Amer) BUN/Creatinine Ratio Glucose Calcium Total Bilirubin AST ALT Alkaline Phosphatase Total Protein Albumin Globulin Albumin/Globulin Ratio TSH Urine Color Yellow Urine Appearance Clear Urine pH 7.5 Ur Specific [place] 1.012 Urine Protein Negative Urine Glucose (UA) Negative Urine Ketones 1+ H Urine Blood Negative Urine Nitrite Negative Urine Bilirubin Negative Urine Urobilinogen Negative Ur Leukocyte Esterase Negative Urine Test Negative Salicylates Urine Opiates Screen Neg Ur Methadone, Qual Neg Acetaminophen Urine Barbiturates Neg Ur Phencyclidine (PCP) Neg U Amphetamin/Meth Scrn Neg MDMA (Ecstasy) Screen Neg U Benzodiazepines Scrn Neg Ur Cocaine Metabolite Neg U Marijuana (THC) Screen Neg Ethyl Alcohol mg/dL SARS-CoV-2, RNA, NAAT 12/07/21 12/07/21 12/07/21 15:02 15:02 15:02 WBC 8.86 RBC 4.96 Hgb 14.5 Hct 41.6 MCV 83.9 MCH 29.2 MCHC 34.9 RDW Std Deviation 37.5 RDW Coeff of Kan 12.5 Plt Count 201 MPV 11.6 H Immature Gran % (Auto) 0.1 Neut % (Auto) 79.4 Lymph % (Auto) 15.8 [place] % (Auto) 4.3 Eos % (Auto) 0.3 Baso % (Auto) 0.1 Neut # (Auto) 7.03 H Lymph # (Auto) 1.40 [place] # (Auto) 0.38 Eos # (Auto) 0.03 Baso # (Auto) 0.01 Immature Gran # (Auto) 0.01 Sodium 138 Potassium 3.6 Chloride 106 Carbon Dioxide 26 Anion Gap 6 BUN 8 Creatinine 0.69 Est Cr Clr Drug Dosing 112.3 Est GFR ( Amer) 139.2 Est GFR (Non-Af Amer) 120.1 BUN/Creatinine Ratio 11.6 Glucose 87 Calcium 9.5 Total Bilirubin 0.6 AST 14 ALT 13 Alkaline Phosphatase 49 Total Protein 7.7 Albumin 4.7 Globulin 3.0 Albumin/Globulin Ratio 1.6 TSH 1.020 Urine Color Urine Appearance Urine pH Ur Specific [place] Urine Protein Urine Glucose (UA) Urine Ketones Urine Blood Urine Nitrite Urine Bilirubin Urine Urobilinogen Ur Leukocyte Esterase Urine Test Salicylates Urine Opiates Screen Ur Methadone, Qual Acetaminophen Urine Barbiturates Ur Phencyclidine (PCP) U Amphetamin/Meth Scrn MDMA (Ecstasy) Screen U Benzodiazepines Scrn Ur Cocaine Metabolite U Marijuana (THC) Screen Ethyl Alcohol mg/dL SARS-CoV-2, RNA, NAAT 12/07/21 12/07/21 12/07/21 15:02 15:02 16:17 WBC RBC Hgb Hct MCV MCH MCHC RDW Std Deviation RDW Coeff of [place] Plt Count MPV Immature Gran % (Auto) Neut % (Auto) Lymph % (Auto) [place] % (Auto) Eos % (Auto) Baso % (Auto) Neut # (Auto) Lymph # (Auto) [place] # (Auto) Eos # (Auto) Baso # (Auto) Immature Gran # (Auto) Sodium Potassium Chloride Carbon Dioxide Anion Gap BUN Creatinine Est Cr Clr Drug Dosing Est GFR ( Amer) Est GFR (Non-Af Amer) BUN/Creatinine Ratio Glucose Calcium Total Bilirubin AST ALT Alkaline Phosphatase Total Protein Albumin Globulin Albumin/Globulin Ratio TSH Urine Color Urine Appearance Urine pH Ur Specific [place] Urine Protein Urine Glucose (UA) Urine Ketones Urine Blood Urine Nitrite Urine Bilirubin Urine Urobilinogen Ur Leukocyte Esterase Urine Test Salicylates < 3.0 L Urine Opiates Screen Ur Methadone, Qual Acetaminophen < 3 L Urine Barbiturates Ur Phencyclidine (PCP) U Amphetamin/Meth Scrn MDMA (Ecstasy) Screen U Benzodiazepines Scrn Ur Cocaine Metabolite U Marijuana (THC) Screen Ethyl Alcohol mg/dL < 10.0 SARS-CoV-2, RNA, NAAT NEGATIVE Hospital Course (1) Major depressive disorder, recurrent episode, severe with anxious distress: (2) Depression with suicidal ideation: 12/11/21: increase Zoloft to 50 mg daily. Safety planning. 12/10/21: Continue with medications. Increasing Vistaril to 50mg TID prn for anxiety. Needs family meeting. 12/09/21: Continue with medications. Working on coping skills development. 12/08/21: The patient was admitted to the [facility] ([facility] inpatient mental health unit) on q15 min checks (behavioral with suicide precautions) for safety. The patient will participate in group, recreational, and milieu therapies and will be offered additional individual and family sessions as clinically appropriate. -trazodone 50mg qhs -sertraline 25mg qam Mental Health & Subst Abuse Tx Psychiatrist Name of Psychiatrist: [facility] Psychiatrist's Date of Appointment with Psychiatrist: 01/11/22 Time of Appointment with Psychiatrist: 8:30 AM Psychiatric Appointment Comment: [address], [place] (call to reschedule or cancel) Therapist Name of Therapist: Michelle Rowe Traci Therapist's Date of Therapist Appointment: 12/22/21 Time of Therapist Appointment: 10:30 AM Therapy Appointment Comment: [address], [address], [place] [address] Post Discharge Appointments Primary Care Physician Name Of Family Doctor: [place] [place] PA-C Primary Care Date of Appointment with PCP: 12/17/21 Time of Appointment with PCP: 10:00 AM Provider Appointment Comment: [address], [place] [address] Smoking Cessation Counseling Tobacco Cessation Medication Prescribed at Discharge: Not Applicable/Non-Smoker Contact Information Discharge Discharge Address: [address] [place] [address] [place] [id number] Discharge Plan Discharge Items Patient Disposition: Home - Self-Care Reason For Visit: SUICIDAL IDEATION/MDD Discharge Diagnosis: major depressive disorder Activity: Resume your previous activity Non-emergency contact: Primary Care Provider, Psychiatrist and Therapist Call non-emergency contact if: you have any medication questions and your symptoms worsen Follow-up/Referrals: Arvin Schilling MD [Primary Care Provider] - Diet: Regular Addtl Attending Provider Instructions: SPECIAL CARE INSTRUCTIONS: 1. Follow through with your scheduled aftercare appointments. If unable to keep an appointment, please call to reschedule. 2. Take your medication only as prescribed. Medication should not be changed or stopped without the approval of your doctor. In the event of worsening symptoms or concerns about side effects, contact your doctor immediately. 3. Utilize new healthy coping skills, anger management skills, and stress management skills learned during your hospitalization. Journal feelings and process them with a support person. Identify stressors or situations that may result in relapse, deterioration or inappropriate behaviors and develop a plan to deal with those issues. 4. If your coping skills are ineffective and you are in crisis, contact your outpatient providers for direction. If unable to reach your providers, please call the [facility] CRISIS LINE AT , go to the [facility] walk-in center at [address], [place], or go to the closest Emergency Room. 5. Avoid alcohol and un-prescribed drugs. 6. You have been provided with the Mental Health Advance Directives Pamphlet for your review. 7. Your condition is stable for discharge to outpatient level of care, but recovery is an ongoing process. Ifthoughts to harm yourself or others return, follow the safety plan developed during your stay. Planning for a safe return home includes securing weapons. Our treatment team recommends weaponsbe removed from the home until your outpatient provider reassesses your progress. In rare cases where the items themselvescannot be removed, guns and ammunitionshould be secured separatelyand keys stored by a reliable personoutside of the home. If you were admitted on an involuntary commitment, the police or other legal authorities may be involved in this process. AFTERCARE APPOINTMENTS: * Please call your insurance company prior to your scheduled appointment to confirm your aftercare providers are covered. Take your insurance information to your appointments. WHO TO CALL AND WHEN: Medical Emergencies: For questions or emergencies related to your hospital stay, please contact the Inpatient Behavioral Health Unit at [phone]. A dining car conductor is on-call 10/04 for the Behavioral Health Unit for emergencies At any time you feel your situation is an emergency, you may also call 911 immediately. Pending Studies at Discharge: No Stand-Alone Forms: My [facility] [address], Smoking Cessation Medications and DC Order Prescriptions: New hydroxyzine HCl 50 mg tablet 50 mg PO TID PRN (Reason: anxiety) Qty: 60 RF: 0 sertraline 50 mg tablet 50 mg PO DAILY Qty: 30 RF: 0 trazodone 50 mg tablet 50 mg PO HS Qty: 30 RF: 0 Continued multivitamin Tablet 1 tab PO DAILY RF: 0 Discontinued escitalopram oxalate [Lexapro] 10 mg tablet 10 mg PO DAILY Qty: 90 RF: 1 Discharge Orders: Discharge Order (Routine); Ordered 12/12/21 Ordered By: Siobhan Calzada Admission Data Admit Date/Time: 12/07/21 18:19 Attending Provider: Siobhan Calzada Admit Provider: Erika Snider Primary Care Provider: Arvin Schilling V. Other Interventions: Discharge Summary Assessment (RN) Last Done: 12/12/21 09:06 PSY Interdisciplinary Discharge Planning Last Done: 12/12/21 09:06 Coding Level of Care Code 39717 D/C day mgmt > 30 min Diagnoses Major depressive disorder, recurrent episode, severe with anxious distress F33.2 Depression with suicidal ideation F32.A; R45.851
[2021-12-12] MEDS: hydrOXYzine HCl 25 MG TAB PO PRN (10:14)
== END 2021-12-12 10:35 | disposition home or self-care (01) | DRG 885 ==
LOC: ED 14:01 → 3S 18:19 → SUATTDRO 18:19 → 3S 19:10

== ENCOUNTER 2023-01-11 05:03 | Inpatient (IN) ==
[2023-01-11] MEDS ORDERED: LIDOCAINE 1% LOCAL 20 ML VIAL INFIL PRN (05:38)
--- NOTE | 2023-01-11 05:41 | Labor Progress Brief Note ---
Date of Service January 11, 2023 Subjective Patient returns with c/o worsening contractions and low back / rectal pressure. No LOF, minimal VB after prior exams (red on TP with wiping), and baby moving. Assessment & Plan (1) Normal labor: Plan: Admit, epidural prn, exp mgmt of labor Physical Exam Genitourinary: 3-4/100/-1. Intact bag palpable. Vertex palpable. FHT Cat 1 [place] [employer] Q2-4 with some coupling. Coding Level of Care Code None Diagnoses Normal labor O80; Z37.9
[2023-01-11] MEDS: LACTATED RINGER'S 1,000 ML IV PRN ×2 (05:45→07:00)
[2023-01-11] MEDS ORDERED: ePHEDrine sulfate 50 MG/ML AMP ONE (06:17)
[2023-01-11] MEDS ORDERED: fentaNYL citrate PF 100 MCG/2 ML VIAL ONE (06:18)
[2023-01-11] MEDS ORDERED: BUPIVACAINE 0.25% PF 30 ML VIAL ONE (06:18)
[2023-01-11] MEDS ORDERED: fentaNYL 2MCG/ML ROPIVACAINE 1.25MG/ML 100 ML BAG EPI ONE (06:18)
[2023-01-11] MEDS ORDERED: LIDOCAINE 2%/EPINEPHRINE 1:200,000 20 ML PF ONE (06:18)
[2023-01-11] MEDS ORDERED: SODIUM CHLORIDE 0.9% PF INJ 10 ML VIAL ONE (06:18)
[2023-01-11 06:33] LABS: Hemoglobin 10.9 g/dl (12.0-16.0); Mean Corpuscular Hemoglobin 28.4 pg (25.0-34.0); Mean Corpuscular Hgb Conc 34.1 g/dL (32.0-36.0); Mean Corpuscular Volume 83.3 fL (80.0-100.0); Mean Platelet Volume 12.8 fL (9.4-12.4); Platelet Count 158 K/uL (130-400); RDW Coefficient of Variation 13.2 % (11.5-14.5); RDW Standard Deviation 39.4 fL (36.4-46.3); Red Blood Count 3.84 M/uL (4.20-5.40); White Blood Count 11.94 K/ul (4.8-10.8)
[2023-01-11] MEDS ORDERED: ONDANSETRON INJ 2 MG/ML 2 ML VIAL IV PRN (06:51)
[2023-01-11] MEDS ORDERED: diphenhydrAMINE 50 MG/ML VIAL IV PRN (06:51)
[2023-01-11] MEDS ORDERED: NALBUPHINE HCL INJ 10 MG/ML AMP IV PRN (06:51)
[2023-01-11] MEDS ORDERED: NALOXONE HCL 0.4 MG/1 ML VIAL/CARP IV PRN (06:51)
[2023-01-11] MEDS ORDERED: fentaNYL 2MCG/ML ROPIVACAINE 1.25MG/ML 100 ML BAG EPI PRN (06:51)
[2023-01-11] MEDS ORDERED: ePHEDrine sulfate 50 MG/ML AMP IV PRN (06:51)
[2023-01-11] MEDS ORDERED: NALOXONE HCL 1 MG in SODIUM CHLORIDE 0.9% 1000ML 1,000 ML IV PRN (06:51)
--- NOTE | 2023-01-11 06:55 | Anesthesiology Consultation ---
Date of Service January 11, 2023 Assessment & Plan (1) Encounter for pre-operative examination: Chart Review Chart Review: Patient NOT seen in Pre Admission Testing and Acceptable Risk for Labor Epidural Consults Requested none History Height/Weight Height: 5 ft 3 in Weight: 82.554 kg Allergies Allergy/AdvReac Type Severity Reaction Status Date / Time No Known Drug Allergies Allergy NKDA Verified 01/09/23 14:47 Medications Home Medications Medication Instructions Recorded Confirmed Last Taken sertraline 100 mg tablet 100 mg PO DAILY #30 tabs 12/29/21 01/11/23 01/09/23 23:00 lamotrigine 25 mg tablet (Lamictal) 50 mg PO DAILY 02/09/22 01/11/23 01/09/23 prenat.vits,vero,oan-hblh-bnxzq 1 tab PO DAILY 06/17/22 01/11/23 01/09/23 Active Medications Generic Name Dose Route Start Last Admin Trade Name Freq PRN Reason Stop Dose Admin Lactated Ringer's 1,000 mls @ 125 mls/hr 01/11/23 05:38 01/11/23 07:00 Lr IV 01/13/23 05:37 125 mls/hr .Q8H PRN Administration L&D Protocol Protocol Past Medical History Medical History (Updated 01/11/23 @ 06:55 by Julio César Mora MD) Depression with suicidal ideation Encounter for pre-operative examination TORIN (generalized anxiety disorder) delivery Tobacco use Varicella vaccination Exercise / Class Metabolic Activity II 4-5 Yardwork/Stairs/Walk up hill Past Family History Family History Uncle Diabetes paternal uncle Grandfather (Paternal) Prostate cancer Father Prostate cancer Denies family history of Ovarian cancer Myocardial infarction Breast cancer Colorectal cancer Past Surgical History Surgical History History of tooth extraction S/P eye surgery Past Anesthesia History No Hx of Anesthesia Complications and No Family Hx of Anesthesia Complications Social History Smoking Status: Former smoker tobacco type: cigarettes Hx Alcohol Use: No (social) Hx Substance Use: No substance use type: does not use Physical Exam Vital Signs Last Vital Signs Temp 36.8 C 01/11/23 06:01 Pulse 69 01/11/23 07:16 Resp 22 04/26/23 06:01 BP 123/71 01/11/23 06:01 Pulse Ox 97 01/11/23 07:16 Testing Laboratory Results 01/11/23 05:46
[2023-01-11] MEDS ORDERED: OXYTOCIN 30 UNITS/500 ML BAG IV PRN ×2 (08:44→13:41)
--- NOTE | 2023-01-11 10:24 | Labor Progress Brief Note ---
Date of Service January 11, 2023 Subjective Comfortable with epidural. FHT Cat 1 [place] Q 2-4 SVE 7/100/0 Pitocin just started, will continue to use pit to achieve adequate labor contractions. Pt agreeable. Assessment & Plan Admission and Anticipated Discharge Date Admission Date: January 11, 2023 Results & Data Vital Signs (Past 12 Hours) Vital Signs Temp Pulse Resp BP Pulse Ox 01/11/23 10:21 64 97 01/11/23 10:16 60 97 01/11/23 10:14 59 L 121/76 01/11/23 10:11 61 98 01/11/23 09:00 20 01/11/23 09:00 37.0 C 20 01/11/23 10:06 64 98 01/11/23 10:01 66 97 01/11/23 09:56 69 97 01/11/23 09:51 59 L 97 01/11/23 09:46 73 98 01/11/23 09:47 72 93 01/11/23 09:44 62 110/59 L 01/11/23 09:41 64 97 01/11/23 09:36 67 98 01/11/23 09:31 58 L 98 01/11/23 09:29 59 L 119/66 01/11/23 09:26 56 L 98 01/11/23 09:21 62 99 01/11/23 09:16 65 98 01/11/23 09:14 61 116/63 01/11/23 09:11 63 98 01/11/23 09:06 62 98 01/11/23 09:01 68 98 01/11/23 08:59 71 107/64 01/11/23 08:56 65 98 01/11/23 08:51 66 99 01/11/23 08:46 59 L 98 01/11/23 08:44 67 115/61 01/11/23 08:41 60 97 01/11/23 08:36 60 97 01/11/23 08:31 60 97 01/11/23 08:29 59 L 122/63 01/11/23 08:26 63 97 01/11/23 08:21 60 96 01/11/23 08:16 56 L 97 01/11/23 08:14 65 113/65 01/11/23 08:11 64 97 01/11/23 08:06 64 96 01/11/23 08:01 62 96 01/11/23 07:58 63 110/64 01/11/23 07:56 61 96 01/11/23 07:54 72 104/62 01/11/23 07:51 61 97 01/11/23 07:49 64 102/71 01/11/23 07:46 73 97 01/11/23 07:43 64 94/53 L 01/11/23 07:41 78 98 01/11/23 07:39 63 96/56 L 01/11/23 07:36 69 96 01/11/23 07:32 64 114/68 01/11/23 07:31 60 97 01/11/23 07:30 59 L 113/66 01/11/23 07:28 60 113/66 01/11/23 07:26 61 108/64 98 01/11/23 07:24 61 116/62 01/11/23 07:23 68 107/60 01/11/23 07:21 88 98 01/11/23 07:20 36.8 C 74 20 111/61 01/11/23 07:19 61 117/67 01/11/23 07:16 69 97 01/11/23 07:11 80 98 01/11/23 07:06 77 99 01/11/23 07:01 67 98 01/11/23 06:56 61 97 01/11/23 06:51 58 L 98 01/11/23 06:46 68 99 01/11/23 06:41 58 L 99 01/11/23 06:01 36.8 C 67 22 123/71 Coding Level of Care Code None Diagnoses
--- NOTE | 2023-01-11 13:24 | Anesthesia Procedure Note ---
Date of Service January 11, 2023 Anesthesia Post Epidural Note Vital Signs Vital Signs: Temp Pulse Resp BP Pulse Ox 37.0 C 72 20 112/73 98 01/11/23 09:00 01/11/23 13:07 01/11/23 09:00 01/11/23 13:07 01/11/23 12:41 Notes Mental Status: alert / awake / arousable and participated in evaluation Patient Amnestic to Procedure: No Nausea / Vomiting: adequately controlled Pain: adequately controlled Airway Patency, RR, SpO2: stable & adequate BP & HR: stable & adequate Hydration State: stable & adequate Neuraxial Anesthesia: was administered and sensory block is resolving Anesthetic Complications: no major complications apparent and Pt Satisfied with anesthetic care Epidural: Removed without complications and With tip intact
--- NOTE | 2023-01-11 13:29 | Delivery Summary ---
Vaginal Delivery Summary Date of Service January 11, 2023 Vaginal Delivery Summary and 1st Degree LAC Vaginal Delivery Summary: Pre-delivery diagnoses: 27yo @ 38 10/25, spontaneous labor Post-delivery diagnoses: same Procedure: spontaneous vaginal delivery, repair of bilateral labial and vaginal lacerations Surgeon: Cintia Ugarte DO Complications: none Findings: Viable male . Apgars: 7/8. Weight pending, please see nursery records. Estimated blood loss: 300ml Description of delivery: The patient progressed to complete with epidural anesthesia. She then began to push. She spontaneously vaginally delivered a viable from the cephalic presentation. The head delivered in SUKHDEV position. The anterior shoulder delivered, followed by the posterior shoulder, followed by the body. No nuchal cord. The baby was placed on mother's abdomen and a spontaneous cry was heard. Delayed cord clamping was employed, and the cord was doubly clamped and cut. Cord blood was obtained. The placenta was delivered spontaneously intact with a 3-vessel cord. The uterus and vagina were swept of clots and debris. IV pitocin was given. The uterus became firm. The cervix, vagina, and perineum were inspected and bilateral labial and vaginal lacerations and a 1st degree perineal laceration were noted. Repair with 3-0 Vicryl. Excellent hemostasis was observed. The mother and baby are recovering in stable and good condition in the room. Sponge, needle and instrument counts were correct x 2. Cintia Ugarte DO [facility] Vaginal Delivery Charge Vaginal Delivery Codes: 16967 global code for the antepartum, delivery, and post- Delivery Type Details: and 1st Degree LAC
[2023-01-11] MEDS ORDERED: DIPHTHERIA/TETANUS/PERTUSSIS Vaccine (Tdap, Age 7+yrs) 0.5mL SYR/VL IM ONE (13:41)
[2023-01-11] MEDS ORDERED: bisacodyL 10 MG SUPP PR PRN (13:41)
[2023-01-11] MEDS ORDERED: HYDROCORTISONE ACETATE 25 MG SUPP PR PRN (13:41)
[2023-01-11] MEDS ORDERED: BENZOCAINE 20% AER SPR 82.5 GM CAN EXT PRN (13:41)
[2023-01-11] MEDS: IBUPROFEN 600 MG TAB PO PRN ×2 (15:45→20:45)
[2023-01-11] MEDS: ACETAMINOPHEN 325 MG TAB PO PRN (16:49)
[2023-01-11] MEDS: DOCUSATE SODIUM 100 MG CAP PO SCH (20:45)
[2023-01-12] MEDS: oxyCODONE/ACETAMINOPHEN 5mg/325mg TAB PO PRN ×5 (00:19→21:59)
[2023-01-12] MEDS: IBUPROFEN 600 MG TAB PO PRN ×6 (00:19→21:59)
[2023-01-12 06:38] LABS: Hematocrit (blood only) 28.9 % (37.0-47.0); Hemoglobin 9.4 g/dl (12.0-16.0)
--- NOTE | 2023-01-12 06:45 | Obstetrical Progress Note ---
Date of Service <Jose Collins - Last Filed: 01/12/23 07:47> January 12, 2023 Assessment & Plan <Jose Collins - Last Filed: 01/12/23 07:47> (1) Spontaneous vaginal delivery: - Feels well today. Eating well, voiding well, ambulating well. - Pain well controlled with ibuprofen 600mg Q4H PRN - Routine care -- OOB, ambulation, diet progression as tolerated - After discharge will have 6 week follow-up with Dr. Ugarte. - Will d/c later this afternoon, 24 hours after delivery. (2) Head ache: - Headache is not controlled with pain meds. - MARTÍNEZ worse with movement and standing. - May be a spinal headache. Will give caffeine and if it does not improve than will consult anesthesia. Day #:: 1 <Cintia Ugarte, - Last Filed: 01/12/23 07:54> (1) Spontaneous vaginal delivery: (2) Head ache: Subjective <Jose AndrewsLeeann Estuardomaria - Last Filed: 01/12/23 07:47> Ambulation: ambulating normally Voiding: no voiding problems Passing Gas:: Yes Diet Tolerance:: regular diet Lochia:: Small Feeding Type:: breast feeding Current Pain Level(1-10): 0 Review of Systems Denies fever, chills, sweats Denies shortness of breath, difficulty breathing, chest pain, palpitations, chest pressure. Denies breast pain. Denies dysuria. Denies changes in vision. + headache Physical Exam <Jose AndrewsLeeann Karina - Last Filed: 01/12/23 07:47> General: Alert, oriented. No acute distress. Cardiac: Regular rate and rhythm, no murmurs/rubs/gallops. Respiratory: Clear to auscultation bilaterally a/p, no wheezes/rales/rhonchi. No increased work of breathing. Symmetrical chest rise. No respiratory distress. Abdomen: Soft, nontender, nondistended. Bowel sounds present. Uterus: Uterine fundus firm, palpable 2 cm below umbilicus. Lower Extremities: No lower extremity edema or swelling. No deep calf pain. Jadiel's negative bilaterally. Results & Data <Jose AndrewsLeeann EstuardoDO maria - Last Filed: 01/12/23 07:47> Vital Signs (Past 12 Hours) Vital Signs Temp Pulse Resp BP Pulse Ox O2 Del Method 01/12/23 04:35 36.4 C L 73 15 124/83 99 Room Air 01/11/23 20:20 36.8 C 76 16 122/74 98 Room Air <Cintia Ugarte DO - Last Filed: 01/12/23 07:54> Co-Signing Physician Notes Resident Physician Supervision Note: I interviewed and examined the patient. Discussed with Dr. Collins and agree with findings and plan as documented in the note. Any exceptions or clarifications are listed here: PPD#1. Concerned about headache - has pain in back, also back of head. She thought it was a tension headache. Does seem to be worse with sitting/standing. Able to sleep and ok lying down. Will try giving her some caffeine to improve this pain. Documented By: Cintia Ugarte DO Resident Activity Tracking <Jose Collins DO - Last Filed: 01/12/23 07:47> Resident Involvement: Resident Care Provided Care Provided: OB Delivery
[2023-01-12] MEDS: PRENATAL VITAMIN 1 TAB PO SCH (09:06)
[2023-01-12] MEDS: DOCUSATE SODIUM 100 MG CAP PO SCH ×2 (09:06→21:59)
[2023-01-12] MEDS: lamoTRIgine 25 MG TAB PO SCH (10:07)
[2023-01-12] MEDS: SERTRALINE HCL 100 MG TABLET PO SCH (10:07)
[2023-01-12] MEDS ORDERED: bisacodyL 5 MG TABEC PO SCH (20:00)
[2023-01-13] MEDS: IBUPROFEN 600 MG TAB PO PRN ×2 (03:06→07:36)
--- NOTE | 2023-01-13 06:54 | Obstetrical Progress Note ---
Date of Service <Jose Collins DO - Last Filed: 01/13/23 06:56> January 13, 2023 Assessment & Plan <Jose Collins DO - Last Filed: 01/13/23 06:56> (1) Spontaneous vaginal delivery: - Feels well today. Eating well, voiding well, ambulating well. - Pain well controlled with ibuprofen 600mg Q4H PRN - Routine care -- OOB, ambulation, diet progression as tolerated - After discharge will have 6 week follow-up with Dr. Ugarte. - Will d/c today. (2) Head ache: - Headache has resolved by this morning. - Instructed to f/u if symptoms return. Day #:: 2 <Andrew Bullard MD, FACOG - Last Filed: 01/13/23 07:06> (1) Spontaneous vaginal delivery: (2) Head ache: Subjective <Jose Collins DO - Last Filed: 01/13/23 06:56> Ambulation: ambulating normally Voiding: no voiding problems Passing Gas:: Yes Diet Tolerance:: regular diet Lochia:: Small Feeding Type:: breast feeding Current Pain Level(1-10): 2 Review of Systems Denies fever, chills, sweats Denies shortness of breath, difficulty breathing, chest pain, palpitations, chest pressure. Denies breast pain. Denies dysuria. Denies headache or changes in vision. Physical Exam <Jose Collins DO - Last Filed: 01/13/23 06:56> General: Alert, oriented. No acute distress. Cardiac: Regular rate and rhythm, no murmurs/rubs/gallops. Respiratory: Clear to auscultation bilaterally a/p, no wheezes/rales/rhonchi. No increased work of breathing. Symmetrical chest rise. No respiratory distress. Abdomen: Soft, nontender, nondistended. Bowel sounds present. Uterus: Uterine fundus firm, palpable 3 cm below umbilicus. Lower Extremities: No lower extremity edema or swelling. No deep calf pain. Jadiel's negative bilaterally. Results & Data <Jose Collins DO - Last Filed: 01/13/23 06:56> Vital Signs (Past 12 Hours) Vital Signs Temp Pulse Resp BP Pulse Ox O2 Del Method 01/12/23 23:21 36.6 C 74 18 118/81 98 Room Air 01/12/23 19:22 36.7 C 81 18 124/77 95 Room Air <Andrew Bullard MD, FACOG - Last Filed: 01/13/23 07:06> Co-Signing Physician Notes Resident Physician Supervision Note: I was present with Dr. Collins during the history and exam. I discussed the case with the resident and agree with the findings and plan as documented in the note. Any exceptions or clarifications are listed here: [None] Documented By: Andrew Bullard MD, FACOG Resident Activity Tracking <Jose Collins DO - Last Filed: 01/13/23 06:56> Resident Involvement: Resident Care Provided Care Provided: OB Delivery
[2023-01-13] MEDS: DOCUSATE SODIUM 100 MG CAP PO SCH (07:35)
[2023-01-13] MEDS: PRENATAL VITAMIN 1 TAB PO SCH (07:35)
[2023-01-13] MEDS: SERTRALINE HCL 100 MG TABLET PO SCH (09:28)
[2023-01-13] MEDS: lamoTRIgine 25 MG TAB PO SCH (09:28)
[2023-01-13] MEDS: ACETAMINOPHEN 325 MG TAB PO PRN (09:41)
== END 2023-01-13 13:05 | disposition home or self-care (01) | DRG 807 ==
LOC: OPB 05:03 → 4S1 05:08 → 4E2 16:37